=== PATIENT | male | born 1955 | race Caucasian/White ===

== ENCOUNTER → 2021-01-03 09:08 | Outpatient (CLI) | payer OTHER, SELFPAY ==
--- NOTE | ~2021-01-03 | MR_ITS ---
EXAMINATION: MR ankle LT wo con DATE: 01/03/2021 09:54 INDICATION: Left posterior tibial tendon dysfunction presenting with chronic left ankle pain. TECHNIQUE: Magnetic resonance imaging (MRI) of the left ankle was performed without intravenous contr ast. Sequences included sagittal, coronal, and axial proton-density weighted fast spin echo without a nd with fat saturation. COMPARISON: None. FINDINGS: Medial ankle ligaments: Deep deltoid ligament is normal. Thickening of the superficial deltoid ligament with small amount of heterotopic ossification along its medial malleolar insertion and without surrounding edema consisten t with scarring related to chronic sprain. Similar there is small amount of heterotopic ossification at the distal navicular insertion of the attenuated superomedial component of the spring ligament com plex also consistent with sequela of chronic partial tear. Lateral ankle ligaments: The posterior inferior tibiofibular ligament is normal. There is heterotopic ossification along the a nterior inferior tibiofibular ligament which is likely sequela of chronic partial tear. The anterior talofibular ligament is attenuated without significant surrounding edema, also consistent with chroni c partial tear. The calcaneofibular and posterior talofibular ligaments are normal. Tendons: Small enthesophyte at the calcaneal insertion of the Achilles tendon with minimal insertional tendino sis without discrete tear. The peroneus longus and brevis tendons are normal. The tibialis anterior a nd extensor hallucis longus and extensor digitorum longus tendons are normal. The flexor digitorum lo ngus and flexor hallucis longus tendons are normal. Mild tendinopathy without discrete tear at the di stal portion of the tibialis posterior tendon near its insertion with the navicula. Plantar fascia: There is thickening and mild increased signal of the proximal plantar aponeurosis at its calcaneal or igin where there is a moderate-sized plantar calcaneal spur. Bones/other: There is suggestion of hindfoot valgus although this along with pes planus with the better evaluated with weightbearing radiographs. Bone marrow signal is normal throughout. No fracture or pathologic ma rrow replacing process. Joint spaces and cartilage appear relatively preserved. There is severe fatty atrophy of the intrinsic musculature of the foot and moderate fatty atrophy of the visualized muscul ature at the lower calf. There is also increased feathery fluid signal throughout the atrophic muscul ature. This could be seen with acute or chronic denervation change such as with diabetic neuropathy. Fluid: Physiologic amount fluid in the joint spaces. No bursitis, tenosynovitis or other abnormal fluid eddy ections. IMPRESSION: 1. Likely chronic partial tears the stabilizing ligaments at the medial and lateral ankle as detailed above. 2. Mild tendinopathy without discrete tear of the distal tibialis posterior tendon. 3. Suggestion of hindfoot valgus which would be more confidently assessed with weightbearing imaging of the foot. 4. Chronic enthesopathy at the distal Achilles tendon and proximal plantar aponeurosis. 5. Severe fatty atrophy of the intrinsic musculature of the foot and moderate fatty atrophy of the mu sculature in the visualized distal calf with mild increased muscular fluid signal is seen in the sett ing of acute on chronic innervation changes such as with diabetic neuropathy. Reviewed, dictated and finalized at location A. IMPRESSION: 1. Likely chronic partial tears the stabilizing ligaments at the medial and lat eral ankle as detailed above. 2. Mild tendinopathy without discrete tear of the distal tibialis posterior ten don. 3. Suggestion of hindfoot valgus
== END ==
PROVIDERS: PCP Emergency Medicine; Visit Provider Podiatrist Foot & Ankle Surgery
DX: M25.572 Pain in left ankle and joints of left foot (principal); M77.8 Other enthesopathies, not elsewhere classified; M62.572 Muscle wasting and atrophy, not elsewhere classified, left ankle and foot
CPT/HCPCS: 73721

== ENCOUNTER → 2021-09-25 13:22 | Outpatient (CLI) | payer OTHER, SELFPAY ==
--- NOTE | ~2021-09-25 | US_ITS ---
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 TECHNIQUE: Multiple grayscale and Doppler ultrasound images of the right upper limb were obtained. COMPARISON: None FINDINGS/IMPRESSION: 8.5 x 3.4 x 3.5 cm hyperechoic mass with well-defined margins within one of the muscles of the medial right upper arm. Appearance suggests an statistically most likely to represent an intramuscular lipo ma. Recommend CT or contrast-enhanced MRI for confirmation and to exclude other significantly less li marbella neoplasm. Reviewed, dictated and finalized at location A.
== END ==
PROVIDERS: Visit Provider Emergency Medicine
DX: D17.9 Benign lipomatous neoplasm, unspecified (principal); R22.31 Localized swelling, mass and lump, right upper limb
CPT/HCPCS: 76882

== ENCOUNTER → 2021-10-09 08:45 | Outpatient (CLI) | payer OTHER, SELFPAY ==
--- NOTE | ~2021-10-09 | MR_ITS ---
EXAMINATION: MR humerus RT wo/w con DATE: 10/09/2021 10:09 INDICATION: Line lipomatous neoplasm at the medial upper arm. TECHNIQUE: Magnetic resonance imaging (MRI) of the right upper arm was performed without and with 17 mL Multihance intravenous contrast. A marker was placed over the mass. Sequences included axial, sag ittal and coronal T1-weighted FSE and fluid sensitive FSE STIR, axial T1-weighted FS FSE and post con trast axial, sagittal and coronal T1-weighted FS FSE. COMPARISON: Ultrasound dated 09/25/2021 FINDINGS: Bone alignment is normal. Normal marrow signal throughout with no fracture, reactive edema or patholo gic marrow replacing process. There is a homogeneously T1 hyperintense and fat saturating lipoma loca kesha in the distal upper arm between the more superficial biceps brachii muscle and the underlying bra chialis muscle. The lipoma measures 11.1 x 6.3 x 2.2 cm . No internal septations, solid soft tissue o r enhancing components identified. No other masses identified. Mild osteoarthritis at the left acromi oclavicular, glenohumeral and elbow joints. No joint effusions. There is mild cystic change at the le sser tuberosity which may relate to the mild subscapularis tendinopathy. No evident rotator cuff tear although dilation is significantly more limited on the larger field of view images than on a standar d shoulder MRI. Small amount fluid in the subacromial/subdeltoid bursa consistent with mild bursitis. IMPRESSION: 1. 11.1 x 6.3 x 2.2 cm lipoma in the distal upper arm situated between the biceps brachii and brachia lis muscles. 2. Mild subacromial/subdeltoid bursitis. Reviewed, dictated and finalized at location A. IMPRESSION: 1. 11.1 x 6.3 x 2.2 cm lipoma in the distal upper arm situated between the elmer ps brachii and brachialis muscles. 2. Mild subacromial/subdeltoid bursitis.
[2021-10-09 09:19] LABS: Estimated Glomerular Filt Rate > 60
== END ==
PROVIDERS: PCP Emergency Medicine; Visit Provider Emergency Medicine
DX: M79.89 Other specified soft tissue disorders (principal); D17.21 Benign lipomatous neoplasm of skin and subcutaneous tissue of right arm; M75.51 Bursitis of right shoulder
CPT/HCPCS: 73220; A9577

== ENCOUNTER 2022-01-02 03:00 | Day surgery (SDC) | payer OTHER, SELFPAY ==
[2021-12-26 15:16] VITALS: BMI 26.1
--- NOTE | 2021-12-26 15:25 | PC.NURSE ---
Report to the Outpatient Waiting Room, entrance under the green pavilion located off [facility], at time 0600 on date 01/02/22. OR Time: 0730. - You and your visitor will be asked a series of questions to screen for COVID 19 for your protection. - Only one visitor is allowed at this time. - The patient visitor is requested to leave or wait in car when not with patient. - A mask is required within the hospital. Patients may have clear liquids (water, carbonated beverages, clear teas, apple juice) until 3 hours prior to surgery with a maximum of 20 ounces. - No food from midnight until time of surgery Take the following medications with a SIP of water the morning of surgery: NONE Medications to discontinue per physician: VITAMINS Date to take last dose: 12/29/21 Please no make-up, nail persian, hairspray, perfume, deodorant, or body powder the day of surgery. No jewelry (including any body piercings) or valuables the day of surgery, leave them at home. Please take a shower or bath the night before, or the morning of, surgery with an antibacterial soap. Wear comfortable, loose fitting clothing. - Jewelry must be removed prior to entering the operating room. Rings and piercings that are not removed may be cut off. - The hospital will not accept responsibility for valuables. - Please leave all valuables, including medications, at home the day of surgery. If you are going home after surgery, a licensed school bus driver/custodian must drive you home. - NO public transportation without another adult. - We recommend that an adult stay with you for 24 hours following discharge. - We also recommend that you do not drive, make important decision, drink alcoholic beverages, or take any drugs that were not prescribed by your health care provider for at least 24 hours after your discharge time. Follow any additional instructions given to you from your surgeon. If you or anyone in your household have experienced Covid symptoms in the past week, please notify your surgeon or the nurse liaison at the phone number below for possible testing. Telephone instructions given to PT - AARON LIANG and asked if any additional questions and then verbalized understanding. Patient advised to call surgeon office or pre surgery nurse liaison [phone] if any additional questions.
--- NOTE | 2022-01-01 13:15 | P.PNAN_ITS ---
Anes - Initial Pre Proc Eval Procedure: Operation Date: 01/02/22 07:30 Proposed Procedures p Excision of Subcutaneous Mass Right Distal Medial Arm - Rodolfo Love MD Date/Time: 01/01/22 13:15 Surgeon: Rodolfo Love MD Pre Op Diagnosis: 11cm,subcutaneous mass right distal medial arm Patient Data Age: 66 Gender: M Height: 1.85 m Weight: 89.81 kg Allergies Allergy/AdvReac Type Severity Reaction Status Date / Time No Known Allergies Allergy Verified 01/02/22 06:24 Home Medications Medication Instructions Recorded Confirmed Type tamsulosin 0.4 mg capsule (Flomax) 0.4 mg PO DAILY #90 caps 06/19/21 01/02/22 Rx losartan 50 mg tablet 50 mg PO DAILY #90 tabs 09/18/21 01/02/22 Rx simvastatin 10 mg tablet 10 mg PO DAILY #90 tabs 09/30/21 01/02/22 Rx allopurinol 300 mg tablet 300 mg PO DAILY #90 tabs 10/25/21 01/02/22 Rx multivitamin 1 tablet PO DAILY 12/26/21 01/02/22 History Patient hx anesthesia problems: none Family hx anesthesia problems: none Results Review: All pre-operative results and documents have been reviewed as part of the pre- operative evaluation. [facility] Past Medical History Medical History (Updated 01/01/22 @ 13:16 by Simba Gordon MD) BPH (benign prostatic hyperplasia) Diabetes mellitus Gout HLD (hyperlipidemia) HTN (hypertension) Hyperglycemia Positive colorectal cancer screening using Cologuard test Tobacco abuse Family History Family History Sibling Hypertension Malignant neoplasm of prostate Mother Patient's mother is , Onset Age: 25 Father Family history of lung cancer, Onset Age: 67 Social History Social History Smoking packs per day: 0.5 Smoking cigarettes per day: 10.0 Years smoked: 20 Smoking pack-years: 10.00 Smoking status: Former smoker Tobacco type: cigarettes Smoking end date: 06/08/19 Alcohol intake: never Substance use: never Substance use type: does not use Living arrangements: with family Spiritual care concerns: No Anes - Eval Final PreProcedure Day of Procedure 01/01/22 13:15 Patient weight: overweight Heart: regular rate and rhythm Lungs: clear to auscultation and normal air movement Airway: Mallampati scale class II Neurological: alert and oriented Last oral intake: >/= 8 hours ASA classification: III Emergent: no Anesthetic plan: proceed Anesthesia type and monitoring: general GIVS Results Review: All pre-operative results and documents have been reviewed as part of the pre- operative evaluation. Informed Consent: The patient's anesthetic plan and its attendant risks and benefits were discussed with the patient/family/POA. Questions were solicited and answers provided to the satisfaction of the patient/family/POA.
[2022-01-02 06:18] VITALS: BP 111/71; PULSE 67; RESP 20; TEMP 36.5; O2SAT 98
[2022-01-02] MEDS: LACTATED RINGERS 1,000 ML 30 ML IV CONT (06:35)
--- NOTE | 2022-01-02 07:07 | WPDHPUPDATE1 ---
History and Physical Update Update Date/Time: 01/02/22 07:07 History and Physical has been reviewed, including an updated exam of the patient. There are NO changes in the patient's condition. Risks, benefits, and alternatives have been discussed and questions answered. Patient agrees to proceed with procedure.
[2022-01-02] MEDS: BACITRACIN OINTMENT 15 GM TUBE 1 APPLIC TOPICAL (07:27)
[2022-01-02] MEDS: LIDO 1%/EPINEPHRINE 1:100,000 10 ML VIAL 20 ML INFILTRATE (07:27)
[2022-01-02 08:45] VITALS: BP 94/49; PULSE 52; RESP 14; O2SAT 96
--- NOTE | 2022-01-02 09:10 | W.PM.PROC2 ---
Procedure Note - Detailed Date of Procedure 01/02/22 Pre-op Diagnosis 11cm,subcutaneous mass right distal medial arm Post-op Diagnosis Same Procedure Performed Excision of 11 cm subfascial lipoma of right medial arm Surgeon Rodolfo Love MD Anesthesia MAC Description of Procedure The site was marked on the patient's medial arm of the holding area her questions were answered. He was taken to operating room was placed supine on the operating table. He was given IV sedation and the right upper extremity was prepped and draped in the usual fashion. The site was carefully examined by palpation, the brachial pulse was not palpable. A line was marked on the skin running longitudinally over the mass and the site was locally infiltrated with 1% lidocaine with epinephrine. The extremity was exsanguinated and the tourniquet was inflated to 240 mmHg. The incision made as marked beginning with 4 cm incision. Blunt dissection through the subcutaneous fat revealed bulging muscle tissue. The neurovascular bundles were identified just proximal to that. Exposure the yellow mass was accomplished by incising along the posterior muscle margin. This revealed the yellow smooth mass. Full exposure neurovascular bundles required lengthening of the incision proximally and distally. This allowed complete digital access to the anterior posterior aspect of the lipoma. Most of the dissection was done digitally. We were able to expose the medial origin of the vascular supply and cauterized those areas until the tumor could be freed. The tourniquet was released and additional bleeding points were cauterized. The wound was closed with intradermal 4-0 Monocryl sutures at multiple sites and skin approximated with glue. A soft bulky bandage was applied with the Sarbjit wrap and the patient was discharged from the operating stable condition Estimated Blood Loss 10 Drains No Packing No Pathology None sent Complications No immediate complications Condition Stable Disposition Same day
[2022-01-02 09:15] VITALS: BP 105/59; PULSE 49; O2SAT 98
[2022-01-02] MEDS: fentaNYL CITRATE INJ (*CRX) 100 MCG/2 ML VIAL 25 MCG IV PUSH ×2 (09:26→09:29)
[2022-01-02] MEDS: oxyCODONE HCL (*CRX) 5 MG TAB IR PO (09:27)
--- NOTE | 2022-01-02 09:42 | SUR.PHASEII ---
Dr. Smith aware that he needs to resend prescription to patient's pharmacy.
[2022-01-02 09:45] VITALS: BP 116/71; PULSE 54
[2022-01-02 10:00] VITALS: BP 119/73; PULSE 50
== END 2022-01-02 10:15 | disposition home or self-care (01) ==
PROVIDERS: PCP Emergency Medicine; Visit Provider Plastic Surgery
PROC: (CPT 25073; principal; 2022-01-02 07:30)
DX: D17.21 Benign lipomatous neoplasm of skin and subcutaneous tissue of right arm (principal); I10 Essential (primary) hypertension; E11.9 Type 2 diabetes mellitus without complications; E78.5 Hyperlipidemia, unspecified; N40.0 Benign prostatic hyperplasia without lower urinary tract symptoms; M10.9 Gout, unspecified; Z87.891 Personal history of nicotine dependence
CPT/HCPCS: 25073; 88304; A9270; J2250; J2704; J3010; J7120

== ENCOUNTER 2022-02-13 14:47 | Outpatient (CLI) | payer OTHER, SELFPAY ==
--- NOTE | ~2022-02-13 | CT_ITS ---
EXAMINATION: CT abdomen pelvis wo/w con DATE: 02/13/2022 15:48 INDICATION: Gross hematuria. TECHNIQUE: Computed tomography (CT) of the abdomen and pelvis was performed without and with intraven ous contrast using a total of 130 mL Omnipaque-350 intravenous contrast with a double-bolus technique for simultaneous opacification of the renal parenchyma and renal collecting system. Automated exposu re control and iterative reconstruction technique were employed. The dose-length product was 1610.12 mGy-cm. COMPARISON: Chest CT 02/01/2019 FINDINGS: The visualized portions of the lung bases demonstrate mild atelectasis. A calcified right lung nodule is consistent with old granulomatous disease. No pleural effusion. The heart size is normal. No crow cardial effusion. There is a small sliding hiatal hernia. There are cysts in the kidneys measuring up to 17 mm. 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 The spleen is normal. T here is a calcification in the head of the pancreas, consistent with chronic pancreatitis. The right adrenal gland is normal. There is a 2.4 cm mass in left adrenal gland measuring soft tissue attenuati on. There are cysts in the kidneys measuring up to 13 mm on the left. There are two stones in left ki dney measuring up to 5 mm. Right ureter is not well opacified distally, but is normal. Left ureter is not well opacified in its middle third, but is normal. The prostate is severely enlarged. There is d iffuse bladder wall thickening, likely secondary to chronic outlet obstruction. There is diverticulos is of the colon without evidence of diverticulitis. There are no dilated loops of bowel. The appendix is normal. There are no pathologically enlarged lymph nodes. There is no free intraperitoneal fluid. There is a right inguinal hernia containing fat. There is a benign bone island in right ilium. There is moderate thoracic spondylosis and mild lumbar spondylosis. There is mild chronic anterior wedging of multiple thoracic vertebral bodies. IMPRESSION: 1. Diffuse bladder wall thickening, likely secondary to chronic outlet obstruction from the severely enlarged prostate. 2. Nonobstructing left kidney stones. 3. 2.4 cm left adrenal mass. In the absence of known malignancy, this finding is likely an adenoma. Reviewed, dictated and finalized at location A. IMPRESSION: 1. Diffuse bladder wall thickening, likely secondary to chronic outlet obstruct ion from the severely enlarged prostate. 2. Nonobstructing left kidney stones. 3. 2.4 cm left adrenal mass. In the absence of known malignancy, this finding i s likely an adenoma.
== END 2022-02-13 14:48 | disposition home or self-care (01) ==
PROVIDERS: PCP Emergency Medicine; Visit Provider Nurse Practitioner
DX: R31.0 Gross hematuria (principal); R93.41 Abnormal radiologic findings on diagnostic imaging of renal pelvis, ureter, or bladder; N40.0 Benign prostatic hyperplasia without lower urinary tract symptoms; N20.0 Calculus of kidney; E27.9 Disorder of adrenal gland, unspecified
CPT/HCPCS: 74178; Q9967

== ENCOUNTER 2022-11-16 10:42 | Emergency (ER) | payer OTHER, SELFPAY ==
[2022-11-16] VITALS (12 sets, daily range): BP systolic 126–144; BP diastolic 82–109; PULSE 75; RESP 16; TEMP 36.3; O2SAT 95–99
--- NOTE | ~2022-11-16 | XR_ITS ---
XR shoulder RT min 2V 11/16/2022 11:31 Indication: Right shoulder pain. No trauma. Procedure: 4 views right shoulder Comparison: No prior studies for comparison. Findings: There is polyarticular osteoarthritis. Normal mineralization. No fracture or traumatic shelbie lignment. No significant soft tissue abnormality. No foreign bodies. 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 Reviewed, dictated and finalized at location A. 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
--- NOTE | 2022-11-16 10:50 | PC.NURSE ---
Pt c/o right shoulder pain. States he saw his PCP early October, and reported a small 'twinge' in the right shoulder. States he was sent home with exercises to do and had been doing them as prescribed. States he was having a decrease of ROM, but was able to move the arm night while going to bed. Pt states he awoke Thursday and was unable to move the shoulder and had increased pain. States the pain is all over his shoulder. Denies any recent trauma or injury. PMS is present distal to the pain.
--- NOTE | 2022-11-16 10:54 | PC.NURSE ---
Hx of Gout, HLD, HTN
[2022-11-16] MEDS: ACETAMINOPHEN 325 MG TABLET 650 MG PO (11:17)
[2022-11-16] MEDS: KETOROLAC 30 MG/ML VIAL (*BKC) IM (11:20)
[2022-11-16] MEDS: LIDOCAINE 5% PATCH 1 PATCH TRANSDERM (11:22)
--- NOTE | 2022-11-16 12:10 | ED.UPPEXIN ---
HPI - Extremity Injury (Upper) General Chief Complaint: Extremity Injury, Upper Stated Complaint: right shoulder pain Time Seen by Provider: 11/16/22 10:53 History of Present Illness HPI narrative: Patient is a 67-year-old male here for evaluation of right shoulder pain x1 month. Patient states that he saw his primary care doctor upon symptom onset and was told he may have arthritis or rotator cuff injury. He has been using at home exercises and taking Aleve with good relief of his symptoms but over the past 3 days his pain has been more severe. It is concentrated around the lateral aspect of his right shoulder and is worse with any movement of the shoulder, particularly abduction. Describes it as a burning throbbing sensation. No radiation from the neck or into the hand. No obvious injury. No chest pain, diaphoresis, shortness of breath. Related Data Home Medications Medication Instructions Recorded Confirmed multivitamin 1 tablet PO DAILY 12/26/21 01/02/22 Allergies Allergy/AdvReac Type Severity Reaction Status Date / Time No Known Allergies Allergy Verified 11/16/22 10:49 Review of Systems Review of Systems: Gen.: Denies fevers or chills Eyes: Denies eye pain or visual change ENT: Denies congestion Respiratory: Denies shortness of breath or cough CV: Denies chest pain or palpitations GI: Denies abdominal pain nausea, emesis or diarrhea denies burning, urgency, frequency or hematuria Musculoskeletal: Reports right shoulder pain Neuro: Denies numbness, tingling, weakness or focal weakness Skin: Denies rash Except as documented, all other systems reviewed and negative PMF Past Medical History Medical History BPH (benign prostatic hyperplasia) Diabetes mellitus Gout HLD (hyperlipidemia) HTN (hypertension) Hyperglycemia Lipoma of arm Positive colorectal cancer screening using Cologuard test Tobacco abuse Surgical History Surgical History S/P excision of lipoma Family History Family History Sibling Hypertension Malignant neoplasm of prostate Mother Patient's mother is , Onset Age: 25 Father Family history of lung cancer, Onset Age: 67 Social History Social History Smoking packs per day: 0.5 Smoking cigarettes per day: 10.0 Years smoked: 20 Smoking pack-years: 10.00 Smoking status: Former smoker Tobacco type: cigarettes Smoking end date: 06/08/19 Alcohol intake: never Substance use: never Substance use type: does not use Living arrangements: with family Spiritual care concerns: No Exam Narrative: APPEARANCE: Well appearing, no pain in distress, well-nourished. Head: Normocephalic and atraumatic. EYES: PERRLA/EOMI, conjunctivae clear NOSE: No nasal drainage EARS: External ear normal in appearance THROAT: Oropharynx is clear. Mucous membranes are moist. NECK: Supple. No adenopathy, no masses. RESPIRATORY: Airway patent, respirations nonlabored. Clear to auscultation bilaterally, no rales, rhonchi, wheezing. CARDIOVASCULAR: 2+ radial pulses bilaterally. Regular rate and rhythm without murmurs, rubs, or gallops. ABDOMINAL: Normoactive bowel sounds. Soft, nontender, nondistended. No rebound tenderness or guarding. MUSCULOSKELETAL: Patient is able to AB duct to about 10 degrees before he starts having pain in the right shoulder. There is pain with external and internal rotation of the shoulder. There is slight muscular tenderness near the right humeral head. The compartments are soft. Spurling's test is negative. No midline tenderness to the C, T or L-spine. NEURO: Normal speech. No focal neurologic deficits. SKIN: Skin is warm and dry. No rashes. PSYCHIATRIC: Normal affect/mood. Course Vital Sign
== END 2022-11-16 12:37 | disposition home or self-care (01) ==
PROVIDERS: Emergency Provider Physician Assistant; PCP Emergency Medicine
DX: M19.011 Primary osteoarthritis, right shoulder (principal); E11.9 Type 2 diabetes mellitus without complications; E78.5 Hyperlipidemia, unspecified; I10 Essential (primary) hypertension; N40.0 Benign prostatic hyperplasia without lower urinary tract symptoms; Z87.891 Personal history of nicotine dependence
CPT/HCPCS: 73030; 96372; 99283; A9270; J1885

== ENCOUNTER 2022-11-26 07:34 | Outpatient (CLI) | payer OTHER, SELFPAY ==
--- NOTE | ~2022-11-26 | MR_ITS ---
EXAMINATION: MR shoulder RT wo con DATE: 11/26/2022 08:37 INDICATION: Right shoulder pain TECHNIQUE: Magnetic resonance imaging (MRI) of the right shoulder was performed without intravenous c ontrast. Sequences included axial PD-weighted FS FSE, coronal oblique PD-weighted FS FSE, coronal obl ique T2-weighted FS FSE, sagittal PD-weighted FS FSE, and sagittal T1-weighted SE. COMPARISON: None. FINDINGS: Coracoacromial arch: The acromion undersurface is curved in morphology (type II) with small anterior subacromial spur at t he insertion of the normal coracoacromial ligament. Severe acromioclavicular osteoarthritis. Rotator cuff: Mild subscapularis and infraspinatus and moderate supraspinatus tendinopathy without discrete tear. T he teres minor tendon is normal. Moderate grade strain/partial tear of the supraspinatus muscle belly which deep attachment to the supraspinatus fossa with intramuscular surrounding a 4.0 x 2.1 x 0.7 cm intramuscular fluid collection consistent with hematoma. There are some torn muscle fibers along the margins of the fluid collection. Biceps tendon, glenoid labrum and glenohumeral cartilage: Mild tendinopathy of the intramuscular portion of the long head biceps tendon without discrete tear. There is amorphous system with focal degeneration of the anterosuperior labrum along the anterior mar gin of the insertion of the long head biceps tendon. There is an additional mild labral degeneration with mild amorphous increased signal but without clearly defined linear tear plane at the inferior la irwin. Mild glenohumeral osteoarthritis with partial thickness cartilage loss with smooth chondral stas face primarily along the superior and inferomedial aspect of the humeral head and central glenoid wit hout degenerative subchondral changes. Tiny marginal osteophytes along the inferior glenoid. Fluid: Small glenohumeral joint effusion with no abnormal increased fluid in the long head biceps tendon she ath. No loose osteochondral bodies. Slight increased fluid signal in the subacromial/subdeltoid bursa consistent with minimal bursitis. Bones: No fracture or pathologic marrow replacing process. There is intramuscular ganglion cyst at the humer al head originating at the lesser tuberosity subscapularis tendon footplate likely related to rotator cuff disease. IMPRESSION: 1. Small moderate grade muscle strain/partial tear with associated small hematoma along the supraspin atus fossa origin of the supraspinatus muscle. 2. Mild to moderate rotator cuff tendinopathy without discrete tear. 3. Severe acromioclavicular osteoarthritis. 4. Mild glenohumeral osteoarthritis with small region of labral degeneration anterosuperiorly and inf eriorly. 5. Mild tendinopathy without tear of the intra-articular long head biceps tendon. 6. Small glenohumeral joint effusion and minimal subacromial/subdeltoid bursitis. Reviewed, dictated and finalized at location A. IMPRESSION: 1. Small moderate grade muscle strain/partial tear with associated small hemato ma along the supraspinatus fossa origin of the supraspinatus muscle. 2. Mild to moderate rotator cuff tendinopathy without discrete tear. 3. Severe acromioclavicular osteoarthritis. 4. Mild glenohumeral osteoarthritis with small region of labral degeneration an terosuperiorly and inferiorly. 5. Mild tendinopathy without tear of the intra-articular long head biceps tendo n. 6. Small glenohumeral joint effusion and minimal subacromial/subdeltoid bursiti s.
== END 2022-11-26 07:35 | disposition home or self-care (01) ==
PROVIDERS: PCP Emergency Medicine; Visit Provider Emergency Medicine
DX: M19.011 Primary osteoarthritis, right shoulder (principal); M25.411 Effusion, right shoulder
CPT/HCPCS: 73221

== ENCOUNTER 2023-03-18 07:48 | Outpatient (CLI) | payer OTHER, SELFPAY ==
--- NOTE | 2023-03-18 08:01 | ECG_ITS ---
Measurements Intervals [place] Rate: 64 P: 24 MD: 184 QRS: 4 QRSD: 85 T: 24 QT: 345 QTc: 357 Interpretive Statements SINUS RHYTHM NORMAL ECG NO PREVIOUS ECG AVAILABLE FOR COMPARISON Electronically Signed On 03-18-2023 10:33:10 CDT by Yonis Gonzales M.D.
== END 2023-03-18 07:49 | disposition home or self-care (01) ==
LOC: ANHSURGERY 07:53
PROVIDERS: PCP Emergency Medicine; Visit Provider Orthopaedic Surgery
DX: I10 Essential (primary) hypertension (principal)
CPT/HCPCS: 93005

== ENCOUNTER 2023-03-24 00:18 | Day surgery (SDC) | payer OTHER, SELFPAY ==
--- NOTE | 2023-03-13 12:58 | PC.NURSE ---
Report to the Outpatient Waiting Room, entrance under the green pavilion located off [facility], at time __1130 on date __03/24/23 . Planned Procedure Time: 1330 . Time changes happen often and if your time is changed the preop area will call you the afternoon before. - You and your visitor will be asked to self-screen and do not enter if you have any COVID symptoms. - A mask is optional within the hospital at this time. Patients may have clear liquids (water, carbonated beverages, clear teas, apple juice) until 3 hours prior to surgery with a maximum of 20 ounces. - No food from midnight until time of surgery - Infants may have breast milk until 4 hours before surgery, formula 6 hours prior to surgery. - Children will be allowed to drink immediately following surgery. If applicable, please bring a bottle or sippy cup to assist with drinking. Juice, water, soda, and popsicles are readily available. For infants on formula, please bring formula the day of surgery. Pacifiers are allowed. Take the following medications with a SIP of water the morning of surgery: __NONE DO NOT STOP ANY OF YOUR OTHER PRESCRIPTION MEDICATIONS PRIOR TO SURGERY ?EXCEPT THE FOLLOWING Medications to discontinue per physician ___IBUPROFEN 7 DAYS PRE OP PER DR ARMENDARIZ. _LAST DOSE 03/16/23 . ALL VITAMINS 3 DAYS PRE OP.LAST DOSE 03/20/23 Please no make-up, nail albanian, hairspray, perfume, deodorant, or body powder the day of surgery. No jewelry (including any body piercings) or valuables the day of surgery, leave them at home. Please take a shower or bath the night before, or the morning of, surgery with an antibacterial soap. Wear comfortable, loose fitting clothing. Children are encouraged to wear pajamas. - Jewelry must be removed prior to entering the operating room. Rings and piercings that are not removed may be cut off. - The hospital will not accept responsibility for valuables. - Please leave all valuables, including medications, at home the day of surgery. If you are going home after surgery, a licensed front load trash truck driver must drive you home. - NO public transportation without another adult if you receive anesthesia. - We recommend that an adult stay with you for 24 hours following discharge. - We also recommend that you do not drive, make important decision, drink alcoholic beverages, or take any drugs that were not prescribed by your health care provider for at least 24 hours after your discharge time. For Pediatric surgeries, we recommend two adults accompany the child home. Follow any additional instructions given to you from your surgeon. If you or anyone in your household have experienced Covid symptoms in the past week, please notify your surgeon or the nurse liaison at the phone number below for possible testing. Telephone instructions given to __PATIENT and asked if any additional questions and then verbalized understanding. Patient advised to call surgeon office or pre surgery nurse liaison [phone] if any additional questions.
[2023-03-13 13:11] VITALS: BMI 29.2
[2023-03-24] VITALS (8 sets, daily range): BP systolic 104–125; BP diastolic 61–89; PULSE 53–64; RESP 12–20; TEMP 36.2; O2SAT 98–100; BMI 28.9
--- NOTE | 2023-03-24 07:11 | WPDHPUPDATE1 ---
History and Physical Update Update Date/Time: 03/24/23 07:11 History and Physical has been reviewed, including an updated exam of the patient. There are NO changes in the patient's condition. Risks, benefits, and alternatives have been discussed and questions answered. Patient agrees to proceed with procedure.
--- NOTE | 2023-03-24 12:10 | WPDANESEPPF ---
Anes - Initial Pre Proc Eval Procedure: Operation Date: 03/24/23 13:30 Proposed Procedures p Right Shoulder Arthroscopic Subacromial Decompression - Royce Do MD Date/Time: 03/24/23 12:10 Surgeon: Royce Do MD Pre Op Diagnosis: Rt Rot Cuff Tear Patient Data Age: 67 Gender: M Height: 1.85 m Weight: 100.7 kg Allergies Allergy/AdvReac Type Severity Reaction Status Date / Time No Known Allergies Allergy Verified 03/23/23 09:40 Home Medications Medication Instructions Recorded Confirmed Type multivitamin 1 tablet PO DAILY 12/26/21 03/23/23 History allopurinol 300 mg tablet See Rx Instructions .Route 10/08/22 03/23/23 Rx .COMPLEX #90 tabs losartan 50 mg tablet See Rx Instructions .Route 10/08/22 03/23/23 Rx .COMPLEX #90 tabs simvastatin 10 mg tablet See Rx Instructions .Route 10/08/22 03/23/23 Rx .COMPLEX #90 tabs tamsulosin 0.4 mg capsule See Rx Instructions .Route 10/08/22 03/23/23 Rx .COMPLEX #90 caps finasteride 5 mg tablet 5 mg PO DAILY 03/04/23 03/23/23 History ibuprofen 600 mg tablet 600 mg PO Q6H PRN Pain 03/13/23 03/23/23 History hydrocodone 5 mg-acetaminophen 325 1 - 2 tablet PO Q4-6H PRN pain #30 03/24/23 Rx mg tablet tabs Patient hx anesthesia problems: none Family hx anesthesia problems: none Results Review: All pre-operative results and documents have been reviewed as part of the pre-operative evaluation. [facility] Past Medical History Medical History BPH (benign prostatic hyperplasia) Diabetes mellitus Gout HLD (hyperlipidemia) HTN (hypertension) Hyperglycemia Lipoma of arm Positive colorectal cancer screening using Cologuard test Tobacco abuse Surgical History Surgical History S/P excision of lipoma Family History Family History Sibling Hypertension Malignant neoplasm of prostate Mother Patient's mother is , Onset Age: 25 Father Family history of lung cancer, Onset Age: 67 Social History Social History Smoking packs per day: 0.5 Smoking cigarettes per day: 10.0 Years smoked: 20 Smoking pack-years: 10.00 Smoking status: Former smoker Tobacco type: cigarettes Smoking end date: 06/08/19 Alcohol intake: never Substance use: never Substance use type: does not use Lack of Transportation: No Lack of Food: Never True Current Housing: I Have Housing Concerned About Future Housing: No Difficulty Paying Gas/Electric Bills: No Difficulty Paying for Meds: No Currently Unemployed: No Education: Trade/Vocational Certificate Difficulty w/ Childcare or Family Care: No Living arrangements: with family Spiritual care concerns: No Anes - Eval Final PreProcedure Day of Procedure 03/24/23 12:10 Patient weight: overweight Heart: regular rate and rhythm Lungs: clear to auscultation Airway: Mallampati scale class II Neurological: alert and oriented Last oral intake: >/= 8 hours ASA classification: III Emergent: no Anesthetic plan: proceed Anesthesia type and monitoring: general ETT Results Review: All pre-operative results and documents have been reviewed as part of the pre-operative evaluation. Informed Consent: The patient's anesthetic plan and its attendant risks and benefits were discussed with the patient/family/POA. Questions were solicited and answers provided to the satisfaction of the patient/family/POA.
[2023-03-24] MEDS: LACTATED RINGERS 1,000 ML 30 ML IV CONT ×2 (12:14→14:38)
[2023-03-24] MEDS: ACETAMINOPHEN 500 MG TABLET 1000 MG PO (12:14)
[2023-03-24] MEDS: KETOROLAC 15 MG/ML VIAL (*BKC) IV PUSH (12:15)
[2023-03-24] MEDS: ceFAZolin 2 GM/D5W 50 ML 2 GM/50 ML BAG IVPB (12:41)
[2023-03-24] MEDS: EPINEPHrine HCL INJ 1 MG/ML AMPUL 3 MG IRRIGATION (13:54)
[2023-03-24] MEDS: BUPIVACAINE/EPINEPHRINE 0.5% 10 ML VIAL INFILTRATE (14:31)
[2023-03-24] MEDS: fentaNYL CITRATE INJ (*CRX) 100 MCG/2 ML VIAL 25 MCG IV PUSH ×4 (15:00→15:21)
--- NOTE | 2023-03-24 15:14 | P.OP_ITS ---
Procedure Note - Detailed Date of Procedure 03/24/23 Pre-op Diagnosis Rt Rot Cuff Tear Post-op Diagnosis Other (1. Partial rotator cuff tear 2. Subacromial impingement 3. Biceps tendinosis 4. Degenerative SLAP tear) Procedure Performed Right shoulder 1. Arthroscopic rotator cuff repair 2. Arthroscopic subacromial decompression 3. Arthroscopic biceps tenodesis 4. Arthroscopic labral debridement Surgeon Royce Do MD Product Engineering Manager Johanny aHider PA-C Anesthesia General Findings Mid grade articular sided partial-thickness rotator cuff tear. Slap tear with biceps tendinosis. Evidence of subacromial impingement with acromial spur. Rotator cuff repaired with Regeneten bio inductive implant and 6 LUCIO tendon anchors and 2 peek bone anchors. Biceps repaired with SwiveLock anchor and loop and tack system. Superior labrum debrided. No significant arthritis. Moderate acromioplasty given the significant subacromial spur and evidence for impingement. Description of Procedure Preoperative antibiotics were given. An interscalene block was administered in the preoperative area. The patient was bought brought to the operating room. A general anesthetic was administered. The patient was carefully positioned in the beach chair position. The head and neck were carefully positioned. The non operative extremity was also carefully positioned. The shoulder was prepped and draped in the usual sterile fashion. Examination was performed. Standard posterior and anterior arthroscopic portals were established. Inflow achieved with the arthroscopic pump using saline and epinephrine. The glenohumeral joint was carefully inspected. No arthritis present. Significant articular side supraspinatus tear. Debrided back approximately 50% of the tendon thickness. Subscapularis intact. Biceps with tendinosis and unstable attachment at the superior labrum. This was quite degenerative and unstable. The labrum was debrided and the biceps tenodesed at the articular margin using a SwiveLock anchor and a loop intact suture. The biceps tendon was then released from the labrum. Attention was turned to the subacromial space. A complete bursectomy was performed. The bursal side cuff was intact. There was some softness but otherwise good integrity to the remaining tendon. A modest acromioplasty was performed. Two additional cannulas were placed along the lateral margin of the deltoid. These were used for the medial LUCIO tendon anchors. The large Regeneten graft was inserted to cover the lateral margin of the supraspinatus a portion of the infraspinatus, and draped laterally over the lateral bone of the greater tuberosity. LUCIO anchors were placed in the tendon which secured it very anatomically. Two peek anchors were placed in the corners laterally. The tissue implant covered the area of partial-thickness tear very nicely The arthroscopic instruments were removed. The wounds were closed with 3-0 Monocryl subcuticular suture and steri strips. There were no complications. A sling was applied and the patient brought to the recovery room. Physician diploma medical assistant, Johanny Haider PA-C, required for surgery; including patient positioning, draping, arthroscopic camera operation, maintaining instrument position, collagen tissue placement, wound closure, and dressing and sling placement. Implants Regeneten large bio inductive implant. Two peek bone anchors. Six LUCIO tendon anchors. Arthrex SwiveLock BioComposite anchor. Estimated Blood Loss 10 Pathology None sent Complications No immediate complications Condition Stable Disposition PACU [facility] Billing Surgery - Charge Forward: Surgery Billing
[2023-03-24] MEDS: oxyCODONE HCL (*CRX) 5 MG TAB IR PO (15:50)
== END 2023-03-24 15:20 | disposition home or self-care (01) ==
PROVIDERS: PCP Emergency Medicine; Visit Provider Orthopaedic Surgery
PROC: (CPT 29805; principal; 2023-03-24 13:30)
DX: M75.101 Unspecified rotator cuff tear or rupture of right shoulder, not specified as traumatic (principal); M75.81 Other shoulder lesions, right shoulder; M75.41 Impingement syndrome of right shoulder; M75.21 Bicipital tendinitis, right shoulder; E11.9 Type 2 diabetes mellitus without complications; I10 Essential (primary) hypertension; E78.5 Hyperlipidemia, unspecified; N40.0 Benign prostatic hyperplasia without lower urinary tract symptoms; M10.9 Gout, unspecified; Z87.891 Personal history of nicotine dependence
CPT/HCPCS: 29827; 29828; 29826; A4565; A9270; C1713; J0171; J0690; J1100; J1885; J2250; J2405; J2704; J3010; J7120

== ENCOUNTER 2023-05-07 01:20 | Day surgery (SDC) | payer OTHER, SELFPAY ==
[2023-04-27 14:27] VITALS: BMI 29.6
--- NOTE | 2023-05-05 12:40 | SUR.PREOP ---
Patient called regarding upcoming procedure. Reviewed preop instructions, appointment times, and procedure prep.
[2023-05-07 11:03] VITALS: BP 126/74; PULSE 66; RESP 18; TEMP 36.4; O2SAT 66; BMI 28.6
[2023-05-07] MEDS: LACTATED RINGERS 1,000 ML 150 ML IV CONT (11:24)
--- NOTE | 2023-05-07 11:51 | WPDANESEPPF ---
Anes - Initial Pre Proc Eval Procedure: Operation Date: 05/07/23 12:30 Proposed Procedures p Colonoscopy - Urbano Webster MD Date/Time: 05/07/23 11:51 Surgeon: Urbano Webster MD Pre Op Diagnosis: hx colon polyps Patient Data Age: 67 Gender: M Height: 1.85 m Weight: 98.4 kg Last Vital Signs Temp 97.6 F 05/07/23 11:03 Pulse 66 05/07/23 11:03 Resp 18 05/07/23 11:03 BP 126/74 05/07/23 11:03 Pulse Ox 66 L 05/07/23 11:03 O2 Del Method Room Air 05/07/23 11:03 Allergies Allergy/AdvReac Type Severity Reaction Status Date / Time No Known Allergies Allergy Verified 05/06/23 11:26 Home Medications Medication Instructions Recorded Confirmed Type multivitamin 1 tablet PO DAILY 12/26/21 05/06/23 History finasteride 5 mg tablet 5 mg PO DAILY 03/04/23 05/06/23 History allopurinol 300 mg tablet 300 mg PO DAILY 04/27/23 05/06/23 History losartan 50 mg tablet 50 mg PO DAILY 04/27/23 05/06/23 History simvastatin 10 mg tablet 10 mg PO DAILY 04/27/23 05/06/23 History Patient hx anesthesia problems: none Family hx anesthesia problems: none Results Review: All pre-operative results and documents have been reviewed as part of the pre-operative evaluation. [facility] Past Medical History Medical History BPH (benign prostatic hyperplasia) Diabetes mellitus Gout HLD (hyperlipidemia) HTN (hypertension) Hyperglycemia Lipoma of arm Positive colorectal cancer screening using Cologuard test Tobacco abuse Surgical History Surgical History S/P excision of lipoma Family History Family History Sibling Hypertension Malignant neoplasm of prostate Mother Patient's mother is , Onset Age: 25 Father Family history of lung cancer, Onset Age: 67 Social History Social History Smoking packs per day: 0.5 Smoking cigarettes per day: 10.0 Years smoked: 20 Smoking pack-years: 10.00 Smoking status: Current every day smoker Tobacco type: cigarettes and e-cigarettes/vaping Smoking end date: 06/08/19 Alcohol intake: never Substance use: never Substance use type: does not use Lack of Transportation: No Lack of Food: Never True Current Housing: I Have Housing Concerned About Future Housing: No Difficulty Paying Gas/Electric Bills: No Difficulty Paying for Meds: No Currently Unemployed: No Education: Trade/Vocational Certificate Difficulty w/ Childcare or Family Care: No Living arrangements: with family Spiritual care concerns: No Anes - Eval Final PreProcedure Day of Procedure 05/07/23 11:51 Patient weight: normal Heart: regular rate and rhythm Lungs: clear to auscultation Airway: Mallampati scale class II Neurological: alert and oriented Last oral intake: >/= 8 hours ASA classification: III Emergent: no Anesthetic plan: proceed Anesthesia type and monitoring: general GIVS and standard monitoring Results Review: All pre-operative results and documents have been reviewed as part of the pre-operative evaluation. Informed Consent: The patient's anesthetic plan and its attendant risks and benefits were discussed with the patient/family/POA. Questions were solicited and answers provided to the satisfaction of the patient/family/POA.
--- NOTE | 2023-05-07 12:18 | PM.HPGS ---
History of Present Illness History of Present Illness Consent: Risks, benefits, and alternatives have been discussed and questions answered. Patient agrees to proceed with procedure. Chief complaint: hx colon polyps Narrative: Kristopher Wolff is a 67 year old male Presents for screening colonoscopy. Patient's current weight appetite and bowel movements are normal. Patient denies abdominal pain. He has had no bleeding. Family history noncontributory. Previous colonoscopy in 2019 revealed a benign tubulovillous adenoma. Patient presents today for follow-up exam. Review of Systems Review of Systems: Review of systems noncontributory. [facility] Past Medical History Medical History BPH (benign prostatic hyperplasia) Diabetes mellitus Gout HLD (hyperlipidemia) HTN (hypertension) Hyperglycemia Lipoma of arm Positive colorectal cancer screening using Cologuard test Tobacco abuse Surgical History Surgical History S/P excision of lipoma Family History Family History Sibling Hypertension Malignant neoplasm of prostate Mother Patient's mother is , Onset Age: 25 Father Family history of lung cancer, Onset Age: 67 Social History Social History Smoking packs per day: 0.5 Smoking cigarettes per day: 10.0 Years smoked: 20 Smoking pack-years: 10.00 Smoking status: Current every day smoker Tobacco type: cigarettes and e-cigarettes/vaping Smoking end date: 06/08/19 Alcohol intake: never Substance use: never Substance use type: does not use Lack of Transportation: No Lack of Food: Never True Current Housing: I Have Housing Concerned About Future Housing: No Difficulty Paying Gas/Electric Bills: No Difficulty Paying for Meds: No Currently Unemployed: No Education: Trade/Vocational Certificate Difficulty w/ Childcare or Family Care: No Living arrangements: with family Spiritual care concerns: No Meds Home Medications and Allergies Home Medications Medication Instructions Recorded Confirmed Type multivitamin 1 tablet PO DAILY 12/26/21 05/06/23 History finasteride 5 mg tablet 5 mg PO DAILY 03/04/23 05/06/23 History allopurinol 300 mg tablet 300 mg PO DAILY 04/27/23 05/06/23 History losartan 50 mg tablet 50 mg PO DAILY 04/27/23 05/06/23 History simvastatin 10 mg tablet 10 mg PO DAILY 04/27/23 05/06/23 History Allergies Allergy/AdvReac Type Severity Reaction Status Date / Time No Known Allergies Allergy Verified 05/06/23 11:26 Vital Signs Vital Signs - 24 hr 05/07/23 11:03 Temperature 97.6 F Pulse Rate 66 Respiratory Rate 18 Blood Pressure 126/74 Pulse Oximetry 66 L Oxygen Delivery Room Air Exam Narrative: Physical exam reveals patient to be alert. Vital signs stable. HEENT exam is unremarkable. Patient is anicteric. Lungs are clear to auscultation and percussion. Heart is without murmur or extra sounds. Abdomen bowel sounds are present soft nontender with no organomegaly. Digital external rectal exam is normal. Assessment and Plan Assessment and plan (1) History of colon polyps: Code(s): Z86.010 - Personal history of colonic polyps Status: Acute Assessment and Plan: Patient has a history of a tubulovillous adenoma type polyp removed from the colon in 2019. Plan for surveillance colonoscopy now. Consider this at intervals in the future.
--- NOTE | 2023-05-07 12:24 | SUR.PREOP ---
Patient and family notified of delayed start time.
[2023-05-07 13:25] VITALS: BP 93/58; PULSE 58; RESP 21; O2SAT 96
[2023-05-07 13:35] VITALS: BP 99/66; PULSE 59; RESP 21; O2SAT 98
[2023-05-07 13:45] VITALS: BP 117/67; PULSE 57; RESP 22; O2SAT 98
== END 2023-05-07 13:53 | disposition home or self-care (01) ==
PROVIDERS: PCP Emergency Medicine; Visit Provider Internal Medicine Gastroenterology
PROC: 0DJD8ZZ Inspection of Lower Intestinal Tract, Via Natural or Artificial Opening Endoscopic (ICD-10-PCS; CPT 45378; principal; 2023-05-07 12:30)
DX: Z12.11 Encounter for screening for malignant neoplasm of colon (principal); D12.5 Benign neoplasm of sigmoid colon; D12.3 Benign neoplasm of transverse colon; K64.8 Other hemorrhoids; E11.9 Type 2 diabetes mellitus without complications; E78.5 Hyperlipidemia, unspecified; I10 Essential (primary) hypertension; N40.0 Benign prostatic hyperplasia without lower urinary tract symptoms; F17.290 Nicotine dependence, other tobacco product, uncomplicated; Z86.018 Personal history of other benign neoplasm; Z80.42 Family history of malignant neoplasm of prostate; Z80.1 Family history of malignant neoplasm of trachea, bronchus and lung
CPT/HCPCS: 45385; 88305; J2704; J7120

== ENCOUNTER 2023-05-14 09:33 | Emergency (ER) | payer OTHER, SELFPAY ==
--- NOTE | ~2023-05-14 | US_ITS ---
EXAMINATION: US venous doppler [facility] DATE: 05/14/2023 11:52 INDICATION: Pain, warmth and erythema to the left lower limb TECHNIQUE: Grayscale ultrasound images without and with compression and Doppler ultrasound images of the left lower extremity veins were obtained. COMPARISON: None. FINDINGS: The visualized portions of left common femoral vein, profunda (deep) femoral vein, femoral vein, popl iteal vein, peroneal veins, posterior tibial veins, gastrocnemius vein and greater saphenous vein out flow are patent. 2.6 x 2.2 x 0.8 cm anechoic fluid collection without internal vascular flow on color Doppler within the musculature at the lateral left thigh likely hematoma given the history of recent trauma. No surrounding hyperemia to suggest abscess. IMPRESSION: 1. No deep venous thrombosis in the left lower limb. 2. 0.6 x 2.2 x 0.8 cm intramuscular fluid collection at the area of concern at the lateral left thigh most likely posttraumatic hematoma with differential including abscess in the proper clinical settin g although there is no surrounding hyperemia to elevate suspicion. Reviewed, dictated and finalized at location A. RINARY LIVESTOCK INSPECTOR IMPRESSION: 1. No deep venous thrombosis in the left lower limb. 2. 0.6 x 2.2 x 0.8 cm intramuscular fluid collection at the area of concern at the lateral left thigh most likely posttraumatic hematoma with differential inc luding abscess in the proper clinical setting although there is no surrounding hyperemia to elevate suspicion.
--- NOTE | ~2023-05-14 | XR_ITS ---
XR femur LT min 2V 05/14/2023 11:55 Indication: Left leg pain Procedure: 2 views left femur Comparison: No prior studies for comparison. Findings: There is mild osteoarthritis of the left hip. No fracture or traumatic malalignment. No sig nificant soft tissue abnormality. No foreign bodies. Impression: 1: No acute bone or joint abnormality. Reviewed, dictated and finalized at location L. NEYMAN LEVEL ACOUSTIC ANALYST Impression: 1: No acute bone or joint abnormality.
[2023-05-14 09:35] VITALS: BP 147/68; PULSE 78; RESP 16; TEMP 36.8; O2SAT 100
--- NOTE | 2023-05-14 10:32 | ED.GENADULT ---
HPI - General Adult General Chief complaint: Fall Stated complaint: Fall- L thigh pain Time Seen by Provider: 05/14/23 09:38 History of Present Illness HPI narrative: 67-year-old male presented to the ED for evaluation of left thigh pain. Patient reports on Thursday he was attempting to put up [place] lights and fell off the ladder causing left lateral thigh pain. Patient denies striking his head denies loss of consciousness. Related Data Home Medications Medication Instructions Recorded Confirmed multivitamin 1 tablet PO DAILY 12/26/21 05/06/23 finasteride 5 mg tablet 5 mg PO DAILY 03/04/23 05/06/23 allopurinol 300 mg tablet 300 mg PO DAILY 04/27/23 05/06/23 losartan 50 mg tablet 50 mg PO DAILY 04/27/23 05/06/23 simvastatin 10 mg tablet 10 mg PO DAILY 04/27/23 05/06/23 Allergies Allergy/AdvReac Type Severity Reaction Status Date / Time No Known Allergies Allergy Verified 05/06/23 11:26 Review of Systems Review of Systems: All systems reviewed & are unremarkable except as noted in HPI and below PMFSH Past Medical History Medical History BPH (benign prostatic hyperplasia) Diabetes mellitus Gout HLD (hyperlipidemia) HTN (hypertension) Hyperglycemia Lipoma of arm Positive colorectal cancer screening using Cologuard test Tobacco abuse Surgical History Surgical History S/P excision of lipoma Family History Family History Sibling Hypertension Malignant neoplasm of prostate Mother Patient's mother is , Onset Age: 25 Father Family history of lung cancer, Onset Age: 67 Social History Social History Smoking packs per day: 0.5 Smoking cigarettes per day: 10.0 Years smoked: 20 Smoking pack-years: 10.00 Smoking status: Current every day smoker Tobacco type: cigarettes and e-cigarettes/vaping Smoking end date: 06/08/19 Alcohol intake: never Substance use: never Substance use type: does not use Lack of Transportation: No Lack of Food: Never True Current Housing: I Have Housing Concerned About Future Housing: No Difficulty Paying Gas/Electric Bills: No Difficulty Paying for Meds: No Currently Unemployed: No Education: Trade/Vocational Certificate Difficulty w/ Childcare or Family Care: No Living arrangements: with family Spiritual care concerns: No Exam Narrative: APPEARANCE: Well appearing, no pain, no distress, well-nourished. HEAD: normocephalic, atraumatic. EYES: PERRLA/EOMI, conjunctivae clear. NOSE: Normal no drainage EARS:TMS clear with good light reflex. THROAT: Pharynx clear, no exudate. NECK: Supple. No adenopathy, no masses. RESPIRATORY: Airway patent, respirations nonlabored. Clear to auscultation bilaterally, no rales, rhonchi, wheezing. CARDIOVASCULAR: Regular rate and rhythm without murmurs rubs or gallops. ABDOMINAL: Soft, nontender, nondistended, normal bowel sounds MUSCULOSKELETAL: Strong DP pulse on left leg, no calf tenderness or knee tenderness, left lateral thigh tenderness to palpation NEURO: Alert. Cranial nerves II through XII intact. Good gait. Good coordination SKIN: Warm, dry. Normal Color Course Course Emergency Course: 67-year-old male presented to ED for evaluation of left thigh pain. Ultrasound was negative for DVT but did show a suspected hematoma. Patient is afebrile with no leukocytosis and a stable hemoglobin of 13.8. Patient's PT and PTT are within normal limits. No significant changes on his CMP. X-ray shows no acute fracture. patient's hematoma has been present for the last 4 days. Patient does not take any blood thinners. patient was updated on the results of his workup and he was comfortable the plan for discharge and close follow-up. Patient was educate
[2023-05-14] MEDS: HYDROcodone/acetaminophen (*CRX) 5-325 MG TABLET 1 TAB PO (11:08)
[2023-05-14 11:15] LABS: Basophils Percent Auto 0.2 % (0.2-1.2); Eosinophils Absolute Auto 0.2 K/mm3 (0-0.3); Eosinophils Percent Auto 2.5 % (0-4.4); Hemoglobin 13.8 g/dL (14.0-18.0); Immature Granulocyte Absolute 0.03 K/mm3 (0.00-0.031); Immature Granulocyte Percent A 0.5 % (0-0.5); Lymphocytes Percent Auto 12.5 % (18.3-44.2); Mean Corpuscular HGB Conc 33.7 g/dl (32-36); Mean Corpuscular Hemoglobin 28.6 pg (26-34); Mean Corpuscular Volume 84.9 fl (80-100); Mean Platelet Volume 9.4 fl (7.4-10.4); Monocytes Absolute Auto 0.6 K/mm3 (0.1-0.6); Neutrophils Absolute Auto 4.8 K/mm3 (1.3-6.7); Neutrophils Percent Auto 74.3 % (45.5-73.1); Platelet Count Result 238 k/mm3 (150-375); Red Blood Count 4.83 M/mm3 (4.6-6.20); Red Cell Distribution Width 14.1 % (11.5-14.5); White Blood Count 6.4 K/mm3 (4.5-10.0)
[2023-05-14 11:26] LABS: Anion Gap 8 mmol/L (8-16); Blood Urea Nitrogen 13 mg/dL (9-20); Calcium 10.2 mg/dL (8.4-10.2); Carbon Dioxide 26 mmol/L (22-30); Chloride 104 mmol/L (98-107); Estimated CRCL calculation 97 ml/min; Estimated Glomerular Filt Rate > 60; Glucose 104 mg/dL (65-110); Potassium 4.3 mmol/L (3.4-5.0); Prothrombin Time 13.6 Seconds (11.1-14.7); Sodium 138 mmol/L (137-145)
[2023-05-14 11:27] LABS: Partial Thromboplastin Time 31.4 SECONDS (22.3-36.8)
== END 2023-05-14 12:48 | disposition home or self-care (01) ==
PROVIDERS: Emergency Provider Emergency Medicine; PCP Emergency Medicine
DX: S70.12XA Contusion of left thigh, initial encounter (principal); I10 Essential (primary) hypertension; E11.9 Type 2 diabetes mellitus without complications; E78.5 Hyperlipidemia, unspecified; N40.0 Benign prostatic hyperplasia without lower urinary tract symptoms; M10.9 Gout, unspecified; Z87.891 Personal history of nicotine dependence; W11.XXXA Fall on and from ladder, initial encounter
CPT/HCPCS: 36415; 73552; 80048; 85025; 85610; 85730; 93971; 99284; A9270

== ENCOUNTER 2024-05-08 10:36 | Emergency (ER) | payer OTHER, SELFPAY ==
--- NOTE | ~2024-05-08 | CT_ITS ---
EXAMINATION: CT abdomen pelvis w con DATE: 05/08/2024 13:24 INDICATION: Right upper quadrant abdominal pain. TECHNIQUE: Computed tomography (CT) of the abdomen and pelvis was performed with 100 mL Omnipaque 350 intravenous contrast. Automated exposure control and iterative reconstruction technique were employe d. The dose-length product was 1035.21 mGy-cm. COMPARISON: CT abdomen and pelvis 02/13/2022 FINDINGS: The visualized portions of lung bases demonstrate mild atelectasis. No pleural effusion. Th e heart size is normal. No pericardial effusion. There is a small sliding hiatal hernia. There are cy sts in the liver measuring up to 2.0 cm. The gallbladder is distended without change in size. Gallbla dder wall calcifications are noted (porcelain gallbladder). The pancreas, right adrenal gland, and ri ght kidney are normal. There is a 2.5 cm mass of left adrenal gland measuring soft tissue attenuation , stable from 02/13/2022, likely an adenoma There are cysts in left kidney measuring up to 15 mm. There are 2 stones in left kidney measuring up to 7 mm. The prostate is severely enlarged. There is divert iculosis of the colon without evidence of diverticulitis. There are no dilated loops of bowel. The ap pendix is normal. There is fat stranding around an epiploic appendage of ascending colon, consistent with epiploic appendagitis. There is a right inguinal hernia containing fat. There are no pathologica lly enlarged lymph nodes. There is ascites is mild chronic anterior wedging of multiple vertebral bod ies. There is mild thoracic and lumbar spondylosis. IMPRESSION: 1. Epiploic appendagitis of ascending colon. Reviewed, dictated and finalized at location A. BW CONSULTANT
[2024-05-08 10:55] VITALS: BP 144/81; PULSE 106; RESP 22; TEMP 36.3; O2SAT 98
[2024-05-08 10:59] LABS: Basophils Percent Auto 0.2 % (0.2-1.2); Eosinophils Absolute Auto 0.2 K/mm3 (0-0.3); Eosinophils Percent Auto 2.5 % (0-4.4); Hematocrit 43.3 % (42.0-52.0); Immature Granulocyte Absolute 0.03 K/mm3 (0.00-0.031); Immature Granulocyte Percent A 0.5 % (0-0.5); Lymphocytes Absolute Auto 0.88 K/mm3 (0.9-3.2); Lymphocytes Percent Auto 13.6 % (18.3-44.2); Mean Corpuscular HGB Conc 34.6 g/dl (32-36); Mean Corpuscular Hemoglobin 29.4 pg (26-34); Mean Corpuscular Volume 84.9 fl (80-100); Mean Platelet Volume 9.7 fl (7.4-10.4); Monocytes Absolute Auto 0.7 K/mm3 (0.1-0.6); Neutrophils Absolute Auto 4.8 K/mm3 (1.3-6.7); Neutrophils Percent Auto 73.2 % (45.5-73.1); Platelet Count Result 237 k/mm3 (150-375); White Blood Count 6.5 K/mm3 (4.5-10.0)
[2024-05-08 11:03] LABS: Add Urine Microscopic? YES; Appearance Urine Clear (Clear); Bacteria Urine None Seen /hpf; Bilirubin Urine Negative (Negative); Blood Urine Negative (Negative); Color Urine Yellow (Yellow); Glucose Urine UA Negative (Negative); Ketones Urine Negative (Negative); Leukocyte Esterase Ur Trace LEU/UL (Negative); Nitrate Urine Negative (Negative); Non Pathogenic Casts 0-2; Protein Urine Trace mg/dL (Negative); Squamous Epithelial Cell Urine None Seen /hpf (Few); WBC Urine 0-5 /hpf (0-3); pH Urine 5.5 (5.0-9.0)
[2024-05-08 11:18] LABS: Alanine Aminotransferase 36 U/L (6-50); Albumin Level 4.8 g/dL (3.5-5.1); Alkaline Phosphatase 77 U/L (38-126); Anion Gap 10 mmol/L (4-12); Aspartate Amino Transferase 30 U/L (17-59); Blood Urea Nitrogen 16 mg/dL (9-20); Calcium 9.4 mg/dL (8.4-10.2); Carbon Dioxide 21 mmol/L (22-30); Chloride 106 mmol/L (98-107); Estimated CRCL calculation 85 ml/min; Estimated Glomerular Filt Rate > 60; Glucose 116 mg/dL (65-110); Lipase 176 U/L (23-300); Potassium 4.1 mmol/L (3.4-5.0); Sodium 137 mmol/L (137-145)
[2024-05-08 11:46] VITALS: BP 113/81; PULSE 69; RESP 19; O2SAT 93
[2024-05-08 12:01] VITALS: BP 121/88; PULSE 65; RESP 18; O2SAT 93
[2024-05-08 12:16] VITALS: BP 118/75; PULSE 65; RESP 20; O2SAT 94
[2024-05-08 12:31] VITALS: BP 120/73; PULSE 64; RESP 19; O2SAT 94
[2024-05-08] MEDS: SODIUM CHLORIDE 0.9% IV 1,000 ML 999 ML IV CONT (12:48)
[2024-05-08 13:26] VITALS: BP 117/76; PULSE 75; RESP 15; O2SAT 97
--- NOTE | 2024-05-08 13:57 | ED.GENADULT ---
HPI - General Adult General Chief complaint: Abdominal Pain Stated complaint: right abd pain Time Seen by Provider: 05/08/24 11:43 History of Present Illness HPI narrative: This is a 68-year-old male presenting ED chief complaint of abdominal pain. Pain started 2 days ago. Is a sharp pain in the right side. Is not associated with fevers chills nausea vomiting or diarrhea. Patient still has a gallbladder and appendix. Last bowel movement was earlier today and was normal. He is not taking anything for pain control. Related Data Home Medications Medication Instructions Recorded Confirmed multivitamin 1 tablet PO DAILY 12/26/21 03/21/24 finasteride 5 mg tablet 5 mg PO DAILY 03/04/23 03/21/24 Allergies Allergy/AdvReac Type Severity Reaction Status Date / Time No Known Allergies Allergy Verified 03/21/24 09:39 [facility] Past Medical History Medical History BPH (benign prostatic hyperplasia) Diabetes mellitus Gout HLD (hyperlipidemia) HTN (hypertension) Lipoma of arm Positive colorectal cancer screening using Cologuard test Tobacco abuse Surgical History Surgical History History of repair of right rotator cuff (~03/24/23) Arthroscopic subacromial decompression; Arthroscopic biceps tenodesis; Arthroscopic labral debridement S/P excision of lipoma Family History Family History Sibling Hypertension Malignant neoplasm of prostate Mother Patient's mother is , Onset Age: 25 Father Family history of lung cancer, Onset Age: 67 Social History Social History Smoking packs per day: 0.5 Smoking cigarettes per day: 10.0 Years smoked: 20 Smoking pack-years: 10.00 Smoking status: Current every day smoker Tobacco type: cigarettes and e-cigarettes/vaping Smoking end date: 06/08/19 Alcohol intake: never Substance use: never Substance use type: does not use Do You Feel Safe in your Home?: Yes Lack of Transportation: No Lack of Food: Never True Current Housing: I Have Housing Concerned About Future Housing: No Difficulty Paying Gas/Electric Bills: No Difficulty Paying for Meds: No Currently Unemployed: No Education: High School Diploma/GED Difficulty w/ Childcare or Family Care: No Living arrangements: with family Spiritual care concerns: No Exam Narrative: APPEARANCE: No apparent distress. Head: atraumatic. EYES: EOMI, NOSE: Atraumatic NECK: Trachea midline RESPIRATORY: No increased rate of breathing clear to auscultation CARDIOVASCULAR: RRR, ABDOMINAL: Tenderness palpation over the right-sided abdomen with voluntary guarding. No rebound. MUSCULOSKELETAl: No obvious deformities NEURO: Alert. Moving 4/4 extremities SKIN:: Warm, dry. Normal color PSYCHIATRIC: Normal affect Course Vital Signs Vital signs: Vital Signs Temperature 97.4 F L 05/08/24 10:55 Pulse Rate 106 H 05/08/24 10:55 Respiratory Rate 22 H 05/08/24 10:55 Blood Pressure 144/81 H 05/08/24 10:55 Pulse Oximetry 98 05/08/24 10:55 Temperature 97.4 F L 05/08/24 10:55 Pulse Rate 75 05/08/24 13:26 Respiratory Rate 15 05/08/24 13:26 Blood Pressure 117/76 05/08/24 13:26 Pulse Oximetry 97 05/08/24 13:26 Medical Decision Making MDM Narrative Medical decision making narrative: -Course: 5-year-old male presenting with right-sided abdominal plain. CT showed epiploic appendagitis. Patient is stable vital signs, is well appearing his it tolerating p.o.. He will be discharged on pain medication. Primary care follow-up and return precautions. -DDX includes but is not limited to: Colitis, gallbladder disease, appendicitis, gastritis, gastroenteritis, epiploic appendagitis -Interventions: Toradol, Tylenol, normal saline -Shared decision making / Disposition: Discharge -RX Motrin Tylenol Vital Signs Vital Signs: Vital Signs Temperature 97.4 F L 05/08/24 10:55 Pulse Rate 106 H 05/08/24 10:55 Respiratory Rate 22 H 05/08/24 10:55 Blood Pressure 144/81 H 05/08/24 10:55 Pulse Oximetry 98 05/08/24 10:55 Temperature 97.4 F L 05/08/24 10:55 Pulse Rate 75 05/08/24 13:26 Respiratory Rate 15 12/01/24 13:26 Blood Pressure 117/76 12/01/24 13:26 Pulse Oximetry 97 05/08/24 13:26 Lab Data 05/08/24 10:52 05/08/24 10:52 Labs: Lab Results 05/08/24 Range/Units 10:52 WBC 6.5 (4.5-10.0) K/mm3 RBC 5.10 (4.6-6.20) M/mm3 Hgb 15.0 (14.0-18.0) g/dL Hct 43.3 (42.0-52.0) % MCV 84.9 (80-100) fl MCH 29.4 (26-34) pg MCHC 34.6 (32-36) g/dl RDW 14.0 (11.5-14.5) % Plt Count 237 (150-375) k/mm3 MPV 9.7 (7.4-10.4) fl Immature Gran % (Auto) 0.5 (0-0.5) % Neut % (Auto) 73.2 H (45.5-73.1) % Lymph % (Auto) 13.6 L (18.3-44.2) % [place] % (Auto) 10.0 H (2.6-8.5) % Eos % (Auto) 2.5 (0-4.4) % Baso % (Auto) 0.2 (0.2-1.2) % Lymph # (Auto) 0.88 L (0.9-3.2) K/mm3 [place] # (Auto) 0.7 H (0.1-0.6) K/mm3 Eos # (Auto) 0.2 (0-0.3) K/mm3 Baso # (Auto) 0.0 (0.0-0.1) K/mm3 Abs Immat Gran (auto) 0.03 (0.00-0.031) K/mm3 Absolute Neuts (auto) 4.8 (1.3-6.7) K/mm3 Absolute Nucleated RBC 0.000 (0.0-0.012) K/mm3 Nucleated RBC % 0.0 (0.0-0.2) % Sodium 137 (137-145) mmol/L Potassium 4.1 (3.4-5.0) mmol/L Chloride 106 (98-107) mmol/L Carbon Dioxide 21 L (22-30) mmol/L Anion Gap 10 (4-12) mmol/L BUN 16 (9-20) mg/dL Creatinine 0.90 (0.7-1.3) mg/dL Estim Creat Clear Calc 85 ml/min Estimated GFR > 60 (59 - ) Glucose 116 H (65-110) mg/dL Calcium 9.4 (8.4-10.2) mg/dL Total Bilirubin 1.0 (0.2-1.3) mg/dL AST 30 (17-59) U/L ALT 36 (6-50) U/L Alkaline Phosphatase 77 (38-126) U/L Total Protein 8.0 (6.3-8.2) g/dL Albumin 4.8 (3.5-5.1) g/dL Lipase 176 (23-300) U/L Urine Color Yellow (Yellow) Urine Appearance Clear (Clear) Urine pH 5.5 (5.0-9.0) Ur Specific [place] 1.020 (1.001-1.035) Urine Protein Trace (Negative) mg/dL Urine Glucose (UA) Negative (Negative) mg/dL Urine Ketones Negative (Negative) mg/dL Ur Blood (Man) Negative (Negative) Urine Nitrate Negative (Negative) Urine Bilirubin Negative (Negative) Urine Urobilinogen 1.0 (<2.0) mg/dL Leukocyte Esterase Rfl Trace H (Negative) ARLENE/UL Urine RBC 3-5 H (0-2) /hpf Urine WBC 0-5 (0-3) /hpf Ur Squamous Epith Cells None seen (Few) /hpf Urine Bacteria None seen /hpf Urine Casts 0-2 Discharge Plan Discharge Clinical Impression: Epiploic appendagitis Patient Disposition: Home, Self-Care Condition: Stable Instructions: Antibiotic Form Additional Instructions: Please take Motrin Tylenol for pain control. Follow-up with primary care physician as needed. If you develop fevers severe abdominal pain or tract will nausea vomiting return to the ED for re-evaluation. Prescriptions: New ibuprofen 800 mg tablet 800 mg PO TID PRN (Reason: pain) 7 Days Qty: 21 0RF acetaminophen 500 mg tablet 1,000 mg PO TID PRN (Reason: jarrell) 7 Days Qty: 42 0RF No Action losartan 50 mg tablet See Rx Instructions .ROUTE .COMPLEX Qty: 90 2RF Dose Instruction: TAKE 1 TABLET BY MOUTH DAILY Rx Instructions: TAKE 1 TABLET BY MOUTH DAILY finasteride 5 mg tablet 5 mg PO DAILY multivitamin Tablet 1 tablet PO DAILY allopurinol 300 mg tablet See Rx Instructions .ROUTE .COMPLEX Qty: 90 2RF Dose Instruction: TAKE 1 TABLET BY MOUTH DAILY Rx Instructions: TAKE 1 TABLET BY MOUTH DAILY simvastatin 10 mg tablet See Rx Instructions .ROUTE .COMPLEX Qty: 90 2RF Dose Instruction: TAKE 1 TABLET BY MOUTH DAILY Rx Instructions: TAKE 1 TABLET BY MOUTH DAILY Follow-up/Referrals: Jacob Dale MD [Primary Care Provider] -
[2024-05-08] MEDS: ACETAMINOPHEN 500 MG TABLET 1000 MG PO (14:09)
[2024-05-08] MEDS: KETOROLAC 15 MG/ML VIAL (*BKC) IV PUSH (14:10)
== END 2024-05-08 14:17 | disposition home or self-care (01) ==
PROVIDERS: Student in an Organized Health Care Education/Training Program; Emergency Provider Emergency Medicine; PCP Emergency Medicine
DX: K63.89 Other specified diseases of intestine (principal); E11.9 Type 2 diabetes mellitus without complications; E78.5 Hyperlipidemia, unspecified; I10 Essential (primary) hypertension; F17.210 Nicotine dependence, cigarettes, uncomplicated; F17.290 Nicotine dependence, other tobacco product, uncomplicated
CPT/HCPCS: 36415; 74177; 80053; 81001; 83690; 85025; 96361; 96374; 99284; A9270; J1885; J7030; Q9967

== ENCOUNTER 2024-09-27 08:59 | Outpatient (CLI) | payer MEDICARE, SELFPAY ==
--- NOTE | ~2024-09-27 | XR_ITS ---
AP view of the pelvis and AP and lateral views of the bilateral hips Clinical history: Pain Findings: No acute fracture or dislocation is seen. Osseous alignment is anatomic. Bilateral hip and SI joint spaces are preserved. Soft tissues are unremarkable. Impression: No significant abnormality is seen. Reviewed, dictated and finalized at [facility]. Impression: No significant abnormality is seen.
--- OUTSIDE RECORDS SUMMARY | 2024-09-27 09:44 | XMS_ITS | Referral Summary ---
Author Organization [facility] [place] [address] Address [address] [place] [id number] Care Team Providers Care Health Administration Teacher Name Role Phone Jacob Dale MD Primary Care Provide r Allergies No known active allergies Medications allopurinoL (ZYLOPRIM) 300 mg tablet Take 1 tablet (300 mg total) by mouth daily 10/11/2022 Active cyclobenzaprine (FLEXERIL) 10 mg tablet Take 1 tablet (10 mg total) by mouth 3 (three) times a day as needed for muscle spasms 11/05/2022 Active finasteride (PROSCAR) 5 mg tablet Take 1 tablet (5 mg total) by mouth daily 09/26/2022 Active tamsulosin (FLOMAX) 0.4 mg extended release capsule Take 1 capsule (0.4 mg total) by mouth daily 10/11/2022 Active simvastatin (ZOCOR) 10 mg tablet Take 1 tablet (10 mg total) by mouth daily 10/11/2022 Active meloxicam (MOBIC) 7.5 mg tablet Take 1 tablet (7.5 mg total) by mouth daily 11/16/2022 Active losartan (COZAAR) 50 mg tablet Take 1 tablet (50 mg total) by mouth daily 10/11/2022 Active Active Problems Problem Noted Date Diagnosed Date Congenital pes planus 06/29/2011 11/19/2022 Esophageal reflux 05/14/2011 11/19/2022 Gouty arthropathy 05/14/2011 11/19/2022 Pain in limb 05/14/2011 11/19/2022 Overview (11/19/2022): Hurst when he wakes up in the morning.It can start to hurt a little while walking on it all day.Walks all day at job. Has swollen up bad before. Minimal swelling now Social History Tobacco Use Types Packs/Day Years Used Date Smoking Tobacco: Never Assessed Sex and Gender Information Value Date Recorded Sex Assigned at Not on file Legal Sex Male 11:45 AM CDT Gender Identity Not on file Sexual Orientation Not on file Last Filed Vital Signs Vital Sign Reading Time Taken Comments Blood Pressure 120/74 11/19/2022 12:05 PM CDT Pulse 82 11/19/2022 12:05 PM CDT Temperature 37.1 C (98.7 F) 11/19/2022 12:05 PM CDT Respiratory Rate 14 11/19/2022 12:05 PM CDT Oxygen Saturation 98% 11/19/2022 12:05 PM CDT Inhaled Oxygen Concentration - - Weight 99.8 kg (220 lb) 11/19/2022 12:05 PM CDT Height 185.4 cm (6' 1 ) 11/19/2022 12:05 PM CDT Body Mass Index 29.03 11/19/2022 12:05 PM CDT Plan of Treatment Not on file Insurance [facility] [address] [facility] [id number] Care Teams Health Administration Teacher Relationship Specialty Start Date End Date Jacob Dale MD [address] [place], [place] [id number] PCP - General Emergency Medicine 11/19/22
--- OUTSIDE RECORDS SUMMARY | 2024-09-27 09:44 | XMS_ITS | Clinical Summary ---
Author Organization [facility] [place] [address] Address [address] [place] [phone] Care Team Providers Care Lye Treater Name Role Phone Jacob Dale MD Primary [...] on file Sexual Orientation Not on file Obstetrics History Last Filed Vital Signs Vital Sign Reading [...] 11/19/2022 12:05 PM CDT Plan of Treatment Health Maintenance Due Date Last Done Comments Colon Cancer Screening-Colonoscopy 1955 Depression Screening 1955 Fall Risk Assessment 1955 Hepatitis C Screening 1955 DTaP/Tdap/Td Vaccine (1 - Tdap) 1964 Hepatitis B Screening 09/28/1971 Pneumococcal vaccine 65+ (1 of 1 - PCV) 09/28/2003 Zoster Vaccine (1 of 2) 09/28/2003 Abdominal Aortic Aneurysm (AAA) Screen 2018 Well Visit 65+ 2018 Influenza Vaccine (#1) 2024 Insurance [facility] Care Teams Lye Treater Relationship Specialty Start Date End Date Jacob Dale MD [address] [place] [address] PCP - General Emergency Medicine 11/19/22
--- OUTSIDE RECORDS SUMMARY | 2024-09-27 09:44 | XMS_ITS | Clinical Summary ---
Author Organization 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 Gender Identity Not on file Sexual Orientation Not on file Plan of Treatment Health Maintenance Due Date Last Done Comments Hepatitis C Virus (HCV) Screening 1955 TdaP Immunization 1955 Colonoscopy 1998 Colorectal Cancer Screening 1998 Cologuard 09/28/2003 Immunochemical Fecal Occult Blood 09/28/2003 Pneumococcal Immunization (5 0+ years) (1 of 1 - PCV) 09/28/2003 Zoster Immunization (1 of 2) 09/28/2003 Influenza Immunization (#1) 2024 SARS-COV-2 Immunization ( - 2023- season) 2024 Respiratory Syncytial Virus (RSV) Immunization (Adult) (1 - 1-dose 75+ series) 2028 Hepatitis B Immunization Aged Out No longer eligible based on patient's age to complete this topic Meningococcal Immunization (ACWY) Aged Out No longer eligible based on patient's age to complete this topic Rotavirus Immunization Aged Out No lo nger eligible based on patient's age to complete this topic
== END 2024-09-27 09:00 | disposition home or self-care (01) ==
PROVIDERS: PCP Emergency Medicine; Visit Provider Emergency Medicine
DX: M25.551 Pain in right hip (principal); M25.552 Pain in left hip
CPT/HCPCS: 73521

== ENCOUNTER 2024-10-24 08:19 | Outpatient (CLI) | payer MEDICARE, SELFPAY ==
--- NOTE | ~2024-10-24 | US_ITS ---
EXAMINATION: US art doppler w press LE BI DATE: 10/24/2024 09:08 INDICATION: Right hip pain TECHNIQUE: Segmental pressures and plethysmographic and Doppler waveforms of the brachial and lower e xtremity arteries were obtained. COMPARISON: None. FINDINGS: Right and left brachial artery pressures of 130 mm Hg and 128 mm Hg, respectively, are concordant (no rmal difference <= 30 mmHg). The right and left high-thigh pressure indices are 1.13 and 1.30, respec tively (normal > 1.2). The right ankle-brachial index (MALA) is 1.19 (normal >= 0.9-1). The right great toe-brachial index (T BI) is 0.55 (normal >= 0.6-0.8). The right lower extremity segmental pressure gradients are normal (n ormal gradients <= 20-30 mmHg between adjacent levels on the same leg or the same levels on the two l egs). Arterial waveforms are biphasic at the right popliteal and posterior tibial arteries and tripha sic at the right common femoral, superficial femoral and dorsalis pedis arteries with brisk systolic upstrokes throughout. The left MALA is 1.05. The left TBI is 0.59. The left lower extremity segmental pressure gradients are increased between the left [id number] popliteal artery and the left dorsalis pedis and posterior tibial arteries. Arterial waveforms are triphasic at the left common femoral, superficial femoral an d dorsalis pedis arteries and biphasic at the left posterior tibial and popliteal arteries with brisk systolic upstrokes throughout. IMPRESSION: 1. Mild arterial occlusive disease to the bilateral lower limbs with normal bilateral ABIs but mildly decreased bilateral TBI's. Reviewed, dictated and finalized at location A. IMPRESSION: 1. Mild arterial occlusive disease to the bilateral lower limbs with normal brenden ateral ABIs but mildly decreased bilateral TBI's.
--- NOTE | ~2024-10-24 | MR_ITS ---
EXAMINATION: MR humerus RT wo con DATE: 10/24/2024 09:48 INDICATION: Right biceps muscle, fascia or tendon strain. TECHNIQUE: Magnetic resonance imaging (MRI) of the right upper arm was performed without intravenous contrast. Sequences included axial, sagittal and coronal T1-weighted FSE and fluid sensitive FSE STI R. COMPARISON: Right shoulder MR dated 11/26/2022 and right upper arm MR dated 10/09/21 FINDINGS: Bone marrow signal is normal throughout with no fracture, reactive edema or pathologic marrow replaci ng process. Mild osteoarthritis at the right elbow with no elbow joint effusion. There is mild cystic change underlying the right lesser tuberosity. Intramuscular lipoma previously seen between the dist al biceps brachii and brachialis muscle bellies is no longer visualized and has reportedly been resec kesha. No evident residual lipoma. Musculature of the right upper arm demonstrates normal muscle bulk a nd signal. Mild tendinopathy without discrete tear at the distal biceps brachii tendon. The brachiali s tendon and the common flexor and extensor tendon wads appear normal. No pathologically enlarged rig ht axillary lymphadenopathy. IMPRESSION: 1. Interval resection of a previously seen lipoma in the distal upper arm which was situated between the currently normal-appearing biceps brachii and brachialis muscles. 2. Mild tendinopathy without discrete tear at the distal biceps tendon. 3. Mild osteoarthritis at the right elbow. Reviewed, dictated and finalized at location A. IMPRESSION: 1. Interval resection of a previously seen lipoma in the distal upper arm which was situated between the currently normal-appearing biceps brachii and brachia lis muscles. 2. Mild tendinopathy without discrete tear at the distal biceps tendon. 3. Mild osteoarthritis at the right elbow.
--- OUTSIDE RECORDS SUMMARY | 2024-10-24 08:24 | XMS_ITS | Referral Summary ---
Author Organization [facility] [place] [address] Address [address] [place] [phone] Care Team Providers Care Acid Remover Name Role Phone Jacob Dale MD Primary [...] Plan of Treatment Not on file Insurance [facility] [address] [facility] [id number] Care Teams Acid Remover Relationship Specialty Start Date End Date Jacob Dale MD [address] [place], [place] [phone] PCP - General Emergency Medicine 11/19/22
--- OUTSIDE RECORDS SUMMARY | 2024-10-24 08:24 | XMS_ITS | Clinical Summary ---
Author Organization [facility] [place] [address] Address [address] [place] [phone] Care Team Providers Care Wire Weaving Loom Setter Name Role Phone Jacob Dale MD Primary [...] 2018 Well Visit 65+ 2018 Influenza Vaccine (Season Ended) 2025 Insurance [facility] Care Teams Wire Weaving Loom Setter Relationship Specialty Start Date End Date Jacob Dale MD [address] [place] [address] PCP - General Emergency Medicine 11/19/22
--- OUTSIDE RECORDS SUMMARY | 2024-10-24 08:24 | XMS_ITS | Clinical Summary ---
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
== END 2024-10-24 08:20 | disposition home or self-care (01) ==
PROVIDERS: PCP Emergency Medicine; Visit Provider Emergency Medicine
DX: D17.21 Benign lipomatous neoplasm of skin and subcutaneous tissue of right arm (principal); M75.21 Bicipital tendinitis, right shoulder; M19.021 Primary osteoarthritis, right elbow; S46.219A Strain of muscle, fascia and tendon of other parts of biceps, unspecified arm, initial encounter; I70.213 Atherosclerosis of native arteries of extremities with intermittent claudication, bilateral legs
CPT/HCPCS: 73218; 93923

== ENCOUNTER 2025-03-27 10:47 | Outpatient (CLI) | payer MEDICARE, SELFPAY ==
--- NOTE | ~2025-03-27 | XR_ITS ---
XR lumbar spine 2-3V Indication: M51.87 - Other intervertebral disc disorders, lumbosacral... Comparison: None Findings: The vertebral heights are intact. No fracture or subluxation. Moderate loss of disc at L4-5 and L5-S1 Soft tissues unremarkable Impression: No acute abnormality. Reviewed, dictated and finalized at location P. Impression: No acute abnormality.
--- OUTSIDE RECORDS SUMMARY | 2025-03-27 12:54 | XMS_ITS | Clinical Summary ---
Author Organization [facility] [place] [facility] [address] Address [address] [place] [address] Care Team Providers Care Machine Rug Cleaner Name Role Phone Jacob Dale MD Primary [...] mg total) by mouth daily 10/11/2022 Active multivitamin tabletIndicatio ns:Vitamin Deficiency Prevention Take 1 tablet by mouth Active Active Problems Problem Noted Date Diagnosed Date PVD (peripheral vascular disease) 11/03/2024 Assessment & Plan (11/03/2024 3:41 PM CDT): Impression: Patient underwent a home health exam and was found to have decreased distal pulses and underwent an MALA of his lower extremities that was performed at an outside facility. Patient's ABIs reveals triphasic waveforms with normal ABIs. Patient has palpable distal pulses. Plan: Due to patient's palpable pulses and normal MALA, no longer required surveillance. -Patient to follow-up as needed. Primary hypertension 11/03/2024 Assessment & Plan (11/03/2024 3:42 PM CDT): Impression: Chronic and stable. Plan: Continue losartan Mixed hyperlipidemia 11/03/2024 Assessment & Plan (11/03/2024 3:42 PM CDT): Impression: Chronic stable. 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 11/19/2022 Esophageal reflux [...] Sign Reading Time Taken Comments Blood Pressure 130/83 11/02/2024 10:22 AM CDT Pulse 63 11/02/2024 10:22 AM CDT Temperature 37.1 C (98.7 F) 11/19/2022 12:05 PM CDT Respiratory Rate 14 11/19/2022 12:05 PM CDT Oxygen Saturation 96% 11/02/2024 10:22 AM CDT Inhaled Oxygen Concentration - - Weight 104.3 kg (230 lb) 11/02/2024 10:22 AM CDT Height 182.9 cm (6') 11/02/2024 10:22 AM CDT Body Mass Index 31.19 11/02/2024 10:22 AM CDT Plan of Treatment Health Maintenance Due [...] Well Visit 65+ 2018 Influenza Vaccine (#1) 2025 Insurance [employer] MEDICARE GOLD [facility]IC[facility] Address: [facility] [id number] [place] [id number] Care Teams Machine Rug Cleaner Relationship Specialty Start Date End Date Jacob Dale MD [address] [place] [address] PCP - General Emergency Medicine 11/19/22
--- OUTSIDE RECORDS SUMMARY | 2025-03-27 12:54 | XMS_ITS | Clinical Summary ---
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 Gender Identity Not on file Sexual Orientation Not on file Plan of Treatment Health Maintenance Due Date Last Done Comments Hepatitis C Virus (HCV) Screening 1955 TdaP Immunization 1955 Cologuard 1998 Colonoscopy 1998 Colorectal Cancer Screening 1998 Immunochemical Fecal Occult Blood 1998 Pneumococcal Immunization (5 0+ years) (1 of 1 - PCV) 09/28/2003 Zoster Immunization (1 of 2) 09/28/2003 Influenza Immunization (#1) 2025 SARS-COV-2 Immunization ( - 2023- season) 2025 Respiratory Syncytial Virus (RSV) Immunization (Adult) (1 - 1-dose 75+ series) 2028 Hepatitis B Immunization Aged Out No longer eligible based on patient's age to complete this topic Human Papillomavirus (HPV) Immunization Aged Out No longer eligible b ased on patient's age to complete this topic Meningococcal Immunization (ACWY) Aged Out No longer eligible based on patient's age to complete this topic Rotavirus Immunization Aged Out No lo nger eligible based on patient's age to complete this topic
== END 2025-03-27 10:48 | disposition home or self-care (01) ==
PROVIDERS: PCP Emergency Medicine; Visit Provider Emergency Medicine
DX: M51.87 Other intervertebral disc disorders, lumbosacral region (principal)
CPT/HCPCS: 72100

== ENCOUNTER 2025-04-26 12:47 | Outpatient (CLI) | payer MEDICARE, SELFPAY ==
--- NOTE | ~2025-04-26 | MR_ITS ---
EXAM/PROCEDURE: MR lumbar spine wo con HISTORY: M54.16 - Radiculopathy, lumbar region COMPARISON: None available. TECHNIQUE: Standard technique for noncontrast enhanced multiplanar lumbar spine MRI performed. FINDINGS: Degenerative changes are present in the disc spaces and posterior elements throughout the lumbar spine. No acute or aggressive bony or soft tissue process seen. Conus tapers normally at L1 and visualized portions of the cord appear normal. Tiny T2 weighted hyperintense focus in the posterior annulus of L4-5 disc may represent small annular tear. Level specific findings as follows: T12-L1: Mild degenerative change L1-2: Mild degenerative change L2-3: Mild degenerative change L3-4: Mild to moderate degenerative disc and facet changes but no spinal canal stenosis or discrete disc protrusion. Mild to moderate right and mild left-sided neural foraminal narrowing. L4-5: Moderate degenerative disc and facet changes with no spinal canal stenosis or discrete disc protrusion. Borderline stenosis developing in the lateral recesses. Moderate right and mild to moderate left-sided neural foraminal narrowing. L5-S1: No spinal canal stenosis or discrete disc protrusion. Mild to moderate bilateral neural foraminal narrowing left worse than right. IMPRESSION: Multilevel degenerative changes with no spinal canal stenosis or discrete disc protrusions. Neural foraminal narrowing as detailed above. Tiny posterior annular tear may also be present at L4-5. Reviewed, dictated and finalized at location A. INER TENDER IMPRESSION: Multilevel degenerative changes with no spinal canal stenosis or di screte disc protrusions. Neural foraminal narrowing as detailed above. Tiny pos terior annular tear may also be present at L4-5.
--- OUTSIDE RECORDS SUMMARY | 2025-04-26 18:25 | XMS_ITS | Clinical Summary ---
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
--- OUTSIDE RECORDS SUMMARY | 2025-04-26 18:25 | XMS_ITS | Clinical Summary ---
Author Organization [facility] [address] Address [address] [place] [address] Care Team Providers Care Slasher Hand Name Role Phone Jacob Dale MD Primary [...] Vaccine (#1) 2025 Insurance AET[employer] MEDICARE GOLD Care Teams Slasher Hand Relationship Specialty Start Date End Date Jacob Dale MD [address] [place] [address] PCP - General Emergency Medicine 11/19/22
== END 2025-04-26 12:48 | disposition home or self-care (01) ==
PROVIDERS: PCP Emergency Medicine; Visit Provider Emergency Medicine
DX: M51.369 Other intervertebral disc degeneration, lumbar region without mention of lumbar back pain or lower extremity pain (principal); M48.061 Spinal stenosis, lumbar region without neurogenic claudication; M48.07 Spinal stenosis, lumbosacral region
CPT/HCPCS: 72148

== ENCOUNTER 2025-06-07 11:51 | Emergency (ER) | payer MEDICARE, SELFPAY ==
--- NOTE | ~2025-06-07 | US_ITS ---
EXAMINATION: US scrotum doppler DATE: 06/07/2025 14:43 INDICATION: Left testicular pain TECHNIQUE: Testicular sonogram utilizing grayscale and Doppler COMPARISON: None. FINDINGS: The right testis measures 4.0 x 2.8 x 2.8 cm. The left testis measures 4.1 x 3.0 x 2.9 cm. Symmetric normal grayscale appearance to both testes. 6 x 5 x 3 mm left testicular appendix. There is normal vascular flow to both testes. There are couple anechoic epididymal cysts at both the left and right epididymides measuring 304 mm maximal diameter on the right and 8 mm and 4 mm on the left.. The left and right epididymides are otherwise normal with normal vascular flow. There small to moderate-sized bilateral hydroceles with some dependently layering hyperechoic debris. There is no varicocele. IMPRESSION: 1. Normal left testicular appendix and minimal bilateral epididymal cysts. Otherwise normal testes and epididymides with symmetric normal vascular flow on color Doppler. 2. Small to moderate-sized bilateral hydroceles. Reviewed, dictated and finalized at location A. S CURVATURE GAUGER IMPRESSION: 1. Normal left testicular appendix and minimal bilateral epididymal cysts. Oth erwise normal testes and epididymides with symmetric normal vascular flow on co alexandro Doppler. 2. Small to moderate-sized bilateral hydroceles.
--- OUTSIDE RECORDS SUMMARY | 2025-06-07 11:55 | XMS_ITS | Clinical Summary ---
Author Organization [facility] [address] [place] [address] Care Team Providers Care Conductor Pullman Name Role Phone Jacob Dale MD Primary [...] 2025 Insurance AET[employer] MEDICARE GOLD Care Teams Conductor Pullman Relationship Specialty Start Date End Date Jacob Dale MD [address] [place] [address] PCP - General Emergency Medicine 11/19/22
--- OUTSIDE RECORDS SUMMARY | 2025-06-07 11:55 | XMS_ITS | Clinical Summary ---
Author Organization 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
[2025-06-07 12:08] VITALS: BP 116/74; PULSE 98; RESP 20; TEMP 36.9; O2SAT 96
--- OUTSIDE RECORDS SUMMARY | 2025-06-07 14:17 | XMS_ITS | Clinical Summary ---
Author Organization [facility] [address] [place] [address] Care Team Providers Care Police Officer Crime Prevention Name Role Phone Jacob Dale MD Primary [...] 2025 Insurance AETNA MEDICARE GOLD Care Teams Police Officer Crime Prevention Relationship Specialty Start Date End Date Jacob Dale MD [address] [place] [address] PCP - General Emergency Medicine 11/19/22
--- OUTSIDE RECORDS SUMMARY | 2025-06-07 14:17 | XMS_ITS | Clinical Summary ---
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
[2025-06-07 14:24] LABS: Add Urine Microscopic? YES; Appearance Urine Turbid (Clear); Glucose Urine UA Negative (Negative); Leukocyte Esterase Ur 3+ LEU/UL (Negative); Nitrate Urine Positive (Negative); Non Pathogenic Casts 0-2; Specific Grav Ur 1.014 (1.001-1.035)
--- NOTE | 2025-06-07 14:39 | ED.MALEGU ---
HPI - Male Genitourinary General Chief complaint: Urogenital-Male Stated complaint: uti Time Seen by Provider: 06/07/25 14:03 Source: patient Mode of arrival: ambulatory Limitations: no limitations History of Present Illness HPI Narrative: Patient presents with report of concern for urinary tract infection. For a few days he has been experiencing frequent urination, hematuria, and dysuria. This is not uncommon as he states he has a history of frequent UTIs although denies any of them being drug-resistant or requiring hospitalization. However, this morning he developed left testicle pain which is the 1st time this had happened. He tried calling his PCP office Dr Dale but was told nothing could be called in for him and there was no appointment availability until 06/13 so advised to come to ED. he took 500 mg of acetaminophen earlier today. He is not on anticoagulation, has not been taking NSAIDs, or steroids. He does see Urology, saw Dr. Bravo in May. He reports he has chronic back pain but denies any flank pain. Has not noticed a decrease or significant change in urine output. Denies any chills but has had subjective low-grade fever. He noticed some hematuria particularly with terminal strain during urination. Otherwise has not had any penile discharge. Related Data Home Medications ?Medication ?Instructions ?Recorded ?Confirmed ?Last Taken ?Type multivitamin 1 tablet PO DAILY 12/26/21 03/20/25 03/16/23 History finasteride 5 mg tablet 5 mg PO DAILY 03/04/23 03/20/25 03/16/23 History Allergies Allergy/AdvReac Type Severity Reaction Status Date / Time No Known Allergies Allergy Verified 06/07/25 11:53 [facility] Past Medical History Medical History History of recurrent UTIs Heel spur Dysuria Tear of tendon of left ankle Lipoma of arm BPH (benign prostatic hyperplasia) Positive colorectal cancer screening using Cologuard test Tobacco abuse Gout Diabetes mellitus HTN (hypertension) HLD (hyperlipidemia) Surgical History Surgical History History of repair of right rotator cuff (~03/24/23) Arthroscopic subacromial decompression; Arthroscopic biceps tenodesis; Arthroscopic labral debridement S/P excision of lipoma Family History Family History Sibling Hypertension Malignant neoplasm of prostate Mother Patient's mother is , Onset Age: 25 Father Family history of lung cancer, Onset Age: 67 Social History Social History Smoking packs per day: 0.5 Smoking cigarettes per day: 10.0 Years smoked: 20 Smoking pack-years: 10.00 Smoking status: Former smoker Tobacco type: e-cigarettes/vaping Smoking end date: 06/08/19 Alcohol intake: current Alcohol use details: rarely Substance use: never Substance use type: does not use Lack of Transportation: No Lack of Food: Never True Current Housing: I Have Housing Concerned About Future Housing: No Difficulty Paying Gas/Electric Bills: No Difficulty Paying for Meds: No Currently Unemployed: No Education: Trade/Vocational Certificate Difficulty w/ Childcare or Family Care: No Living arrangements: with family Spiritual care concerns: No Exam Narrative: GENERAL: Well-appearing, well-nourished, and in no acute distress. HEAD: Normocephalic, atraumatic. EYES: Non injected, non icteric ENT: Nares clear, no rhinorrhea or epistaxis. Gross auditory acuity intact. NECK: Supple. No meningismus. CHEST: Speaking in full sentences. No respiratory distress. HEART: Regular rate and rhythm. . ABDOMEN: Soft, nondistended. No rigidity or guarding. Not peritoneal EXTREMITIES: Normal range of motion. No lower extremity edema. SKIN: Warm, dry, no rash. NEURO: No focal deficits. Alert and oriented. Answering questions. Following commands. Normal speech without aphasia or dysarthria. PSYCH: Normal mood and affect. Course Vital Signs Vital signs: Vital Signs Temperature 98.4 F 06/07/25 12:08 Pulse Rate 98 06/07/25 12:08 Respiratory Rate 20 06/07/25 12:08 Blood Pressure 116/74 06/07/25 12:08 Pulse Oximetry 96 06/07/25 12:08 Temperature 98.4 F 06/07/25 12:08 Pulse Rate 91 06/07/25 16:46 Respiratory Rate 18 06/07/25 16:46 Blood Pressure 126/79 06/07/25 16:46 Pulse Oximetry 96 06/07/25 16:46 MDM MDM Narrative Medical decision making narrative: Patient presents with concern for urinary tract infection given frequent urination, hematuria, and dysuria occurring for the past few days. Today he developed intermittent left testicle pain and this is the 1st time this has ever happened which is unusual and not typically a symptoms of urinary tract infections that he had previously had. In the emergency department they are afebrile with vital signs within normal limits. Pyridium ordered for dysuria. Urinalysis is concerning for marked urinary tract infection including being nitrate positive. No previous urine cultures to guide therapy although 1 is currently in process for today. No antibiotic allergies. Normal chemistry. Mild leukocytosis. Patient was given 1st dose of antibiotic in the emergency department and the rest of the course prescribed. also prescribed pain meds and Pyridium. Stable ofr dischrage. Adviesd follow up with pcp and urology (already established with Dr bravo) Differential Diagnosis Differential Diagnosis: UTI, pyelonephritis, urethritis, malignancy, dehydration, considered medication effect; epididymitis/orchitis Medical Records I have reviewed the following patient records and this information was taken into consideration when formulating the assessment and plan.: previous labs Lab Data [facility] Lab Attestation statement: I personally reviewed the patient's lab results. 06/07/25 14:55 06/07/25 14:55 Labs: Lab Results 06/07/25 06/07/25 Range/Units 14:11 14:55 WBC 11.1 H (4.5-10.0) K/mm3 RBC 5.19 (4.6-6.20) M/mm3 Hgb 14.9 (14.0-18.0) g/dL Hct 44.3 (42.0-52.0) % MCV 85.4 (80-100) fl MCH 28.7 (26-34) pg MCHC 33.6 (32-36) g/dl RDW 13.8 (11.5-14.5) % Plt Count 290 (150-375) k/mm3 MPV 9.1 (7.4-10.4) fl Immature Gran % (Auto) 0.5 (0-0.5) % Neut % (Auto) 82.7 H (45.5-73.1) % Lymph % (Auto) 7.8 L (18.3-44.2) % [place] % (Auto) 7.9 (2.6-8.5) % Eos % (Auto) 0.9 (0-4.4) % Baso % (Auto) 0.2 (0.2-1.2) % Lymph # (Auto) 0.86 L (0.9-3.2) K/mm3 [place] # (Auto) 0.9 H (0.1-0.6) K/mm3 Eos # (Auto) 0.1 (0-0.3) K/mm3 Baso # (Auto) 0.0 (0.0-0.1) K/mm3 Abs Immat Gran (auto) 0.05 H (0.00-0.031) K/mm3 Absolute Neuts (auto) 9.2 H (1.3-6.7) K/mm3 Absolute Nucleated RBC 0.000 (0.0-0.012) K/mm3 Nucleated RBC % 0.0 (0.0-0.2) % PT 13.6 (11.1-14.7) Seconds INR 1.0 APTT 31.5 (22.3-36.8) Seconds Sodium 143 (137-145) mmol/L Potassium 4.4 (3.4-5.0) mmol/L Chloride 105 (98-107) mmol/L Carbon Dioxide 25 (22-30) mmol/L Anion Gap 13 H (4-12) mmol/L BUN 16 (9-20) mg/dL Creatinine 0.98 (0.7-1.3) mg/dL Estim Creat Clear Calc 67 ml/min Estimated GFR > 60 (59 - ) Glucose 101 (65-110) mg/dL Calcium 9.8 (8.4-10.2) mg/dL Urine Color Yellow (Yellow) Urine Appearance Turbid H (Clear) Urine pH 6.0 (5.0-9.0) Ur Specific [place] 1.014 (1.001-1.035) Urine Protein 2+ H (Negative) mg/dL Urine Glucose (UA) Negative (Negative) mg/dL Urine Ketones Negative (Negative) mg/dL Ur Blood (Man) 3+ H (Negative) Urine Nitrate Positive H (Negative) Urine Bilirubin Negative (Negative) Urine Urobilinogen 1.0 (<2.0) mg/dL Leukocyte Esterase Rfl 3+ H (Negative) ARLENE/UL Urine RBC >100 H (0-2) /hpf Urine WBC >100 H (0-3) /hpf Ur Squamous Epith Cells None seen (Few) /hpf Urine Bacteria 4+ H /hpf Urine Casts 0-2 Imaging Data Radiologist's impression: ITS Impressions Scrotum Ultrasound 06/07/25 15:30 IMPRESSION: 1. Normal left testicular appendix and minimal bilateral epididymal cysts. Otherwise normal testes and epididymides with symmetric normal vascular flow on color Doppler. 2. Small to moderate-sized bilateral hydroceles. Discharge Plan Discharge Clinical Impression: Dysuria, Urinary tract infection in male, Leukocytosis, Cyst of epididymis determined by ultrasound, Bilateral hydrocele Patient Disposition: Home Condition: Stable Instructions: Antibiotic Form, Urinary Tract Infection in Men (ED), Testicle Pain (ED), Dysuria (ED) Additional Instructions: Acetaminophen/Tylenol (maximum 4000 mg per day) is safe to take with NSAIDs (ibuprofen/Motrin) for pain relief. Take the antibiotic for your urinary tract infection. You received your 1st dose while in the emergency department and the rest of the course has been prescribed. Follow-up with your primary care physician and urologist. Return to the emergency department any new, worsening, unmanaged symptoms. Pyridium/phenazopyridine can help with the pain you are experiencing from a urinary tract infection. It can discolor your urine and tears (turn them orange). Do not wear contact lenses while taking this medication. Patient Language: Welsh Prescriptions: New cefpodoxime 200 mg tablet 200 mg PO BID 7 Days Qty: 14 0RF Rx Instructions: must administer with a meal/food acetaminophen 500 mg capsule 1,000 mg PO Q6H PRN (Reason: pain) Qty: 30 0RF ibuprofen 200 mg capsule 600 mg PO Q6H PRN (Reason: pain) Qty: 30 0RF phenazopyridine [Pyridium] 100 mg tablet 100 mg PO TID PRN (Reason: pain) Qty: 5 0RF Rx Instructions: received first dose in ED No Action finasteride 5 mg tablet 5 mg PO DAILY multivitamin Tablet 1 tablet PO DAILY tamsulosin 0.4 mg capsule See Rx Instructions .ROUTE .COMPLEX Qty: 90 2RF Dose Instruction: TAKE 1 CAPSULE BY MOUTH DAILY Rx Instructions: TAKE 1 CAPSULE BY MOUTH DAILY losartan 50 mg tablet See Rx Instructions .ROUTE .COMPLEX Qty: 90 2RF Dose Instruction: TAKE 1 TABLET BY MOUTH DAILY Rx Instructions: TAKE 1 TABLET BY MOUTH DAILY allopurinol 300 mg tablet See Rx Instructions .ROUTE .COMPLEX Qty: 90 2RF Dose Instruction: TAKE 1 TABLET BY MOUTH DAILY Rx Instructions: TAKE 1 TABLET BY MOUTH DAILY simvastatin 10 mg tablet See Rx Instructions .ROUTE .COMPLEX Qty: 90 0RF Dose Instruction: TAKE 1 TABLET BY MOUTH DAILY Rx Instructions: TAKE 1 TABLET BY MOUTH DAILY Follow-up/Referrals: Jacob Dale MD [Primary Care Provider, Internal Medicine] Chris Bravo MD [Physician, Urology] Stand Alone Forms: Work/School Release IP Time of Disposition: 16:05
[2025-06-07 15:01] LABS: Hematocrit 44.3 % (42.0-52.0); Hemoglobin 14.9 g/dL (14.0-18.0); Immature Granulocyte Percent A 0.5 % (0-0.5); Lymphocytes Absolute Auto 0.86 K/mm3 (0.9-3.2); Mean Corpuscular HGB Conc 33.6 g/dl (32-36); Mean Corpuscular Hemoglobin 28.7 pg (26-34); Mean Corpuscular Volume 85.4 fl (80-100); Nucleated Red Blood Cells Absolute Auto 0.000 K/mm3 (0.0-0.012); Nucleated Red Blood Cells Perc 0.0 % (0.0-0.2); Platelet Count Result 290 k/mm3 (150-375); Red Blood Count 5.19 M/mm3 (4.6-6.20); White Blood Count 11.1 K/mm3 (4.5-10.0)
[2025-06-07] MEDS: PHENAZOPYRIDINE HCL 100 MG TABLET PO (15:09)
[2025-06-07 15:13] LABS: INR 1.0; Prothrombin Time 13.6 Seconds (11.1-14.7)
[2025-06-07 15:14] LABS: Anion Gap 13 mmol/L (4-12); Blood Urea Nitrogen 16 mg/dL (9-20); Calcium 9.8 mg/dL (8.4-10.2); Carbon Dioxide 25 mmol/L (22-30); Chloride 105 mmol/L (98-107); Estimated CRCL calculation 67 ml/min; Estimated Glomerular Filt Rate > 60; Glucose 101 mg/dL (65-110); Partial Thromboplastin Time 31.5 Seconds (22.3-36.8); Potassium 4.4 mmol/L (3.4-5.0); Sodium 143 mmol/L (137-145)
[2025-06-07 16:46] VITALS: BP 126/79; PULSE 91; RESP 18; O2SAT 96
[2025-06-07] MEDS: CEFPODOXIME PROXETIL 200 MG TABLET PO (16:49)
== END 2025-06-07 16:50 | disposition home or self-care (01) ==
PROVIDERS: Emergency Provider Student in an Organized Health Care Education/Training Program; PCP Emergency Medicine
DX: N39.0 Urinary tract infection, site not specified (principal); N43.3 Hydrocele, unspecified; N50.3 Cyst of epididymis; E11.9 Type 2 diabetes mellitus without complications; I10 Essential (primary) hypertension; E78.5 Hyperlipidemia, unspecified; N40.0 Benign prostatic hyperplasia without lower urinary tract symptoms; Z87.891 Personal history of nicotine dependence
CPT/HCPCS: 36415; 76870; 80048; 81001; 85025; 85610; 85730; 87077; 87086; 87186; 93976; 99284; A9270